=== PATIENT | male | born 1940 | race African-American/Black ===

== ENCOUNTER 2018-10-16 05:07 | Inpatient (IN) | payer MEDICARE, MEDICAID ==
[2018-10-16] VITALS (7 sets, daily range): BP systolic 134–188; BP diastolic 56–83
[~2018-10-16] VITALS: Ht 172.7 cm; Wt 85.7 kg
[2018-10-16] MEDS ORDERED: Albuterol ud Inhalation ONE (05:12)
[2018-10-16] MEDS ORDERED: Aspirin Baby 81mg ORAL ONE (05:15)
[2018-10-16] MEDS ORDERED: Albuterol ud Inhalation HHN ONE (05:15)
[2018-10-16] MEDS ORDERED: AMLODIPINE BESY10 MG ORAL (05:19)
[2018-10-16] MEDS ORDERED: ASPIRIN-LOW81 MG ORAL (05:20)
[2018-10-16] MEDS ORDERED: HYDRALAZINE HCL50 MG ORAL (05:22)
[2018-10-16] MEDS ORDERED: PRAVASTATIN SOD10 M1 ORAL (05:23)
[2018-10-16] MEDS ORDERED: ATORVASTATIN CA40 MG ORAL (05:23)
[2018-10-16] MEDS ORDERED: LISINOPRIL40 MG ORAL (05:24)
--- NOTE | 2018-10-16 05:25 | NUR ---
ED Nurse Note: Patient BIBA with c/o SOB with history of hypertension. RT at bedside administering a breathing treatment.
--- NOTE | 2018-10-16 05:35 | NUR ---
ED Nurse Note: Patient tolerating breathing treatment well. No s/s of acute distress. breathing does sound wet patient is able to expectorate secretions. Will continue to monitor.
[2018-10-16 05:38] LABS: MEAN CORPUSCULAR VOLUME 80 FL (80-99); PLATELET COUNT 222 K/UL (150-450); RED BLOOD COUNT 4.14 M/UL (4.70-6.10); RED CELL DISTRIBUTION WIDTH 16.9 % (11.6-14.8)
[2018-10-16 05:39] LABS: WHITE BLOOD COUNT 22.5 K/UL (4.8-10.8)
[2018-10-16 05:44] LABS: ANION GAP 9 mmol/L (5-15); BLOOD UREA NITROGEN 28 mg/dL (7-18); CALCIUM 8.8 MG/DL (8.5-10.1); CARBON DIOXIDE 26 MMOL/L (21-32); CHLORIDE 107 MMOL/L (98-107); CREATININE 1.6 MG/DL (0.55-1.30); SODIUM 142 MMOL/L (136-145)
--- NOTE | 2018-10-16 05:46 | Emergency Room Report ---
History of Present Illness General Chief Complaint: Dyspnea/Respdistress Source: Patient, EMS Present Illness HPI This is a 78-year-old male with history of CAD and high blood pressure. He presents with chief complaint of shortness of breath. He said his been ongoing for last 2 days but worse tonight. He said he couldn't breathe. Had to call 911. EMS said that he was hypoxic and very hypertensive. Patient was given 0.8 of nitroglycerin spray. He was put on oxygen and brought here. Patient said is worse with laying flat. Worse with exertion. Denies any chest pain. Denies any nausea vomiting. Denies any fever or chills. Never had this problem before. No history of CHF or COPD. Allergies: Coded Allergies: UNABLE TO ASSESS (Unverified , 10/16/18) Patient History Past Medical History: see triage record, old chart reviewed, DM, HTN, CAD Past Surgical History: none Pertinent Family History: none Social History: Denies: smoking Immunizations: other Reviewed Nursing Documentation: PMH: Agreed; PSxH: Agreed Nursing Documentation-PMH Past Medical History: No History, Except For Hx Cardiac Problems: Yes Hx Hypertension: Yes Review of Systems Eye: Denies: eye pain, blurred vision ENT: Denies: ear pain, nose congestion, throat swelling Respiratory: Reports: shortness of breath; Denies: cough Cardiovascular: Denies: chest pain, palpitations Gastrointestinal: Denies: abdominal pain, diarrhea, nausea, vomiting Musculoskeletal: Denies: back pain, joint pain Skin: Denies: rash Neurological: Denies: headache, numbness Endocrine: Denies: increased thirst, increased urine Hematologic/Lymphatic: Denies: easy bruising All Other Systems: negative except mentioned in HPI Physical Exam Vital Signs Date Time Temp Pulse Resp B/P (MAP) Pulse Ox O2 Delivery O2 Flow Rate FiO2 10/16/18 05:07 97.9 64 22 188/83 100 Non-Rebreather 15.0 10/16/18 05:19 100 vitals with htn and hypoxia Sp02 EP Interpretation: abnormal General Appearance: moderate distress Head: normocephalic, atraumatic Eyes: bilateral eye PERRL, bilateral eye EOMI ENT: hearing grossly normal, normal pharynx Neck: full range of motion, supple, no meningismus Respiratory: chest non-tender, respiratory distress, accessory muscle use, rales Cardiovascular #1: regular rate, rhythm, no murmur Gastrointestinal: normal bowel sounds, non tender, no mass, no organomegaly, no bruit, non-distended Musculoskeletal: back normal, normal range of motion, swelling - 2+ pitting edema Psychiatric: mood/affect normal Skin: warm/dry Medical Decision Making Diagnostic Impression: Primary Impression: Acute respiratory failure with hypoxia Additional Impressions: Pulmonary edema Qualified Codes: J81.0 - Acute pulmonary edema Hypertension Qualified Codes: I10 - Essential (primary) hypertension Acute exacerbation of CHF (congestive heart failure) Qualified Codes: I50.9 - Heart failure, unspecified Leukocytosis Qualified Codes: D72.829 - Elevated white blood cell count, unspecified ER Course Patient presents with a acute respiratory distress and has pulmonary edema. Better now. He does have a leukocytosis. I see no source of infection. He has no fever or crackles on exam. Onset was acute. Leukocytosis may be a stress response. His chf may be secondary to cardiac event. Will admit for further workup. I discussed case with Dr. Segura. Lab Results Impression labs with elevated WBC EKG Diagnostic Results Rate: normal Rhythm: NSR ST Segments: no acute changes ASA given to the pt in ED: Yes Rhythm Strip Diag. Results EP Interpretation: yes Rate: 55 Rhythm: NSR, no PVC's, no ectopy Chest X-Ray Diagnostic Results Chest X-Ray Diagnostic Results : Chest X-Ray Ordered: Yes # of Views/Limited/Complete: 1 View Indication: Shortness of Breath EP Interpretation: Yes Interpretation: no consolidation, no pneumothorax, other - Pulmonary edema Impression: Other - pulmonary edema, chf Electronically Signed by: Haris Avery MD Last Vital Signs Date Time Temp Pulse Resp B/P (MAP) Pulse Ox O2 Delivery O2 Flow Rate FiO2 10/16/18 05:30 63 21 100 Non-Rebreather 15.0 100 10/16/18 05:26 97.9 188/83 Status: improved Disposition: ADMITTED INPATIENT Condition: Serious Haris Avery MD Oct 16, 2018 05:46
[2018-10-16 05:54] LABS: APPEARANCE,URINE CLEAR; BILIRUBIN, URINE NEGATIVE (NEGATIVE); GLUCOSE, URINE (UA) NEGATIVE (NEGATIVE); KETONES,URINE NEGATIVE (NEGATIVE); LEUKOCYTE ESTERASE ,URINE NEGATIVE (NEGATIVE); NITRITE,URINE NEGATIVE (NEGATIVE); PH,URINE 5 (4.5-8.0); PROTEIN,URINE 4+ (NEGATIVE); UROBILINOGEN,URINE NORMAL MG/DL (0.0-1.0)
[2018-10-16 05:57] LABS: ALANINE AMINOTRANSFERASE 27 U/L (12-78); ALBUMIN 3.4 G/DL (3.4-5.0); ALBUMIN/GLOBULIN RATIO 0.7 (1.0-2.7); ALKALINE PHOSPHATASE 118 U/L (46-116); ASPARTATE AMINO TRANSFERASE 15 U/L (15-37); BILIRUBIN,TOTAL 0.8 MG/DL (0.2-1.0); CREATINE KINASE 86 U/L (26-308)
[2018-10-16 06:07] LABS: COLOR,URINE YELLOW
[2018-10-16] MEDS ORDERED: Enoxaparin 100mg Inj SUBQ ONE (06:15)
[2018-10-16] MEDS ORDERED: Nitroglycerin 2% oint pkt TOPIC ONE (06:45)
--- NOTE | 2018-10-16 07:07 | NUR ---
ED Nurse Note: REPORT RECEIVED FROM OMAR PUGH. PT LAYING PEACEFULLY IN BED IN NAD. AOX4. FAMILY AT BEDSIDE. RR12 @ 97% 02 SATURATION ON 3L O2 VIA NASAL CANNULA.
--- NOTE | 2018-10-16 08:00 | NUR ---
ED Nurse Note: TELE UNIT CALLED FOR PT TRANSFER. REPORT GIVEN TO OMAR CARDOZA BUT ROOM NOT READY YET. TELE UNIT REQUESTING 20 MORE MINUTES. PT WILL BE TAKEN UP AT THAT TIME.
--- NOTE | 2018-10-16 08:20 | NUR ---
ED Nurse Note: PT TAKEN UP TO TELE UNIT ON [employer] WITH ALL BELONGINGS ACCOMPANIED BY PRIMARY RN AND EMT.
--- NOTE | 2018-10-16 08:30 | NUR ---
NURSE NOTES: Pt brought up from ER via gurney, awake/alert, breathing easily on 2 lpm nasal cannula, denies SOB and denies pain at this time. Pt has occasional non-productive cough. Crackles/rales in both bases. Abdomen sof/supple. Miving all extremities well, good distal functions. Urinals available at bedside. Bed left in low position, side rails up x 2 and call light left near pt's hand.
--- NOTE | 2018-10-16 09:55 | Consultation ---
History of Present Illness General Date patient seen: Oct 16, 2018 Chief Complaint: Dyspnea/Respdistress Present Illness HPI 78-year-old male with history of CAD, DM, HTN, presents with chief complaint of shortness of breath. He said his been ongoing for last 2 days but worse tonight. EMS said that he was hypoxic and very hypertensive. Patient was given 0.8 of nitroglycerin spray. He was put on oxygen and brought here. Denies any chest pain. Denies any nausea vomiting. Denies any fever or chills. Never had this problem before. He was found to have extensive pulmonary edema and admitted to telemetry for further evaluation. Allergies: Coded Allergies: No Known Allergies (Unverified , 10/16/18) Medication History Scheduled Amlodipine Besylate* (Amlodipine Besylate*), 10 MG ORAL DAILY, (Reported) Aspirin (Aspirin EC), 81 MG ORAL DAILY, (Reported) Atorvastatin Calcium* (Atorvastatin Calcium*), 40 MG ORAL BEDTIME, (Reported) Hydralazine Hcl* (Hydralazine Hcl*), 50 MG ORAL EVERY 8 HOURS, (Reported) Lisinopril* (Lisinopril*), 40 MG ORAL DAILY, (Reported) Pravastatin Sod (Pravastatin Sod), 10 MG ORAL BEDTIME, (Reported) Patient History Healthcare decision maker Resuscitation status Advanced Directive on File Past Medical/Surgical History Past Medical/Surgical History: (1) Diabetes mellitus (2) CAD (coronary artery disease) (3) Hypertension Review of Systems Constitutional: Reports: no symptoms Eye: Reports: no symptoms ENT: Reports: no symptoms Respiratory: Reports: orthopnea, shortness of breath Physical Exam General Appearance: WD/WN Lines, tubes and drains: peripheral HEENT: normocephalic, atraumatic Neck: normal alignment, supple Respiratory/Chest: rhonchi - left, rhonchi - right Breasts: no masses Cardiovascular/Chest: regular rhythm Abdomen: non tender, soft, no organomegaly Genitourinary/Rectal: normal genital exam Extremities: pitting Last 24 Hour Vital Signs Date Time Temp Pulse Resp B/P (MAP) Pulse Ox O2 Delivery O2 Flow Rate FiO2 10/16/18 08:32 98.4 62 13 130/78 97 Room Air 10/16/18 07:09 98.2 62 12 144/62 97 Nasal Cannula 3.0 10/16/18 06:57 97.9 54 18 141/56 96 Nasal Cannula 3.0 32 10/16/18 06:41 145/122 10/16/18 05:50 97.9 56 20 167/60 96 Nasal Cannula 3.0 32 10/16/18 05:30 63 21 100 Non-Rebreather 3.0 32 10/16/18 05:26 60 19 Non-Rebreather 15.0 100 10/16/18 05:26 97.9 60 19 188/83 99 Non-Rebreather 15.0 100 10/16/18 05:19 60 19 Non-Rebreather 15.0 100 10/16/18 05:19 60 19 99 Non-Rebreather 15.0 100 10/16/18 05:07 97.9 64 22 188/83 100 Non-Rebreather 15.0 Intake and Output 10/15/18 10/16/18 19:00 07:00 Intake Total 0 ml Output Total 300 ml Balance -300 ml Intake Oral 0 ml Output Urine Total 300 ml # Voids 3 Laboratory Tests Test 10/16/18 05:14 10/16/18 05:45 White Blood Count 22.5 K/UL (4.8-10.8) *H Red Blood Count 4.14 M/UL (4.70-6.10) L Hemoglobin 10.0 G/DL (14.2-18.0) L Hematocrit 33.0 % (42.0-52.0) L Mean Corpuscular Volume 80 FL (80-99) Mean Corpuscular Hemoglobin 24.2 PG (27.0-31.0) L Mean Corpuscular Hemoglobin Concent 30.3 G/DL (32.0-36.0) L Red Cell Distribution Width 16.9 % (11.6-14.8) H Platelet Count 222 K/UL (150-450) Mean Platelet Volume 5.2 FL (6.5-10.1) L Neutrophils (%) (Auto) % (45.0-75.0) Lymphocytes (%) (Auto) % (20.0-45.0) Monocytes (%) (Auto) % (1.0-10.0) Eosinophils (%) (Auto) % (0.0-3.0) Basophils (%) (Auto) % (0.0-2.0) Differential Total Cells Counted 100 Neutrophils % (Manual) 83 % (45-75) H Lymphocytes % (Manual) 9 % (20-45) L Monocytes % (Manual) 4 % (1-10) Eosinophils % (Manual) 3 % (0-3) Basophils % (Manual) 1 % (0-2) Band Neutrophils 0 % (0-8) Platelet Estimate Adequate Platelet Morphology Normal Hypochromasia 1+ Anisocytosis 1+ Prothrombin Time 10.4 SEC (9.30-11.50) Prothromb Time International Ratio 1.0 (0.9-1.1) Activated Partial Thromboplast Time 32 SEC (23-33) Sodium Level 142 MMOL/L (136-145) Potassium Level 4.0 MMOL/L (3.5-5.1) Chloride Level 107 MMOL/L (98-107) Carbon Dioxide Level 26 MMOL/L (21-32) Anion Gap 9 mmol/L (5-15) Blood Urea Nitrogen 28 mg/dL (7-18) H Creatinine 1.6 MG/DL (0.55-1.30) H Estimat Glomerular Filtration Rate mL/min (>60) Glucose Level 201 MG/DL (74-106) H Calcium Level 8.8 MG/DL (8.5-10.1) Total Bilirubin 0.8 MG/DL (0.2-1.0) Aspartate Amino Transf (AST/SGOT) 15 U/L (15-37) Alanine Aminotransferase (ALT/SGPT) 27 U/L (12-78) Alkaline Phosphatase 118 U/L (46-116) H Total Creatine Kinase 86 U/L (26-308) Creatine Kinase MB 1.0 NG/ML (0.0-3.6) Creatine Kinase MB Relative Index 1.1 Troponin I 0.108 ng/mL (0.000-0.056) Pro-B-Type Natriuretic Peptide 1466 pg/mL (0-125) H Total Protein 8.3 G/DL (6.4-8.2) H Albumin 3.4 G/DL (3.4-5.0) Globulin 4.9 g/dL Albumin/Globulin Ratio 0.7 (1.0-2.7) L Urine Color Yellow Urine Appearance Clear Urine pH 5 (4.5-8.0) Urine Specific [place] 1.020 (1.005-1.035) Urine Protein 4+ (NEGATIVE) H Urine Glucose (UA) Negative (NEGATIVE) Urine Ketones Negative (NEGATIVE) Urine Blood Negative (NEGATIVE) Urine Nitrite Negative (NEGATIVE) Urine Bilirubin Negative (NEGATIVE) Urine Urobilinogen Normal MG/DL (0.0-1.0) Urine Leukocyte Esterase Negative (NEGATIVE) Urine RBC 0-2 /HPF (0 - 0) H Urine WBC 0-2 /HPF (0 - 0) Urine Squamous Epithelial Cells Occasional /LPF Urine Amorphous Sediment Few /LPF (NONE) H Urine Bacteria Occasional /HPF (NONE) Urine Fine Granular Casts 0-2 /LPF (NONE) H Height (Feet): 5 Height (Inches): 8.00 Weight (Pounds): 200 Assessment/Plan Problem List: (1) Hypertensive emergency ICD Codes: I16.1 - Hypertensive emergency SNOMED: 142363229831779 (2) Acute exacerbation of CHF (congestive heart failure) ICD Codes: I50.9 - Heart failure, unspecified SNOMED: 84357040, 912640689 Qualifiers: Qualified Codes: I50.9 - Heart failure, unspecified (3) Sepsis ICD Codes: A41.9 - Sepsis, unspecified organism SNOMED: 48691742 (4) Acute respiratory failure with hypoxia ICD Codes: J96.01 - Acute respiratory failure with hypoxia SNOMED: 62928781, 696083492 (5) Pulmonary edema ICD Codes: J81.1 - Chronic pulmonary edema SNOMED: 81412821, 299639115 Qualifiers: Qualified Codes: J81.0 - Acute pulmonary edema (6) Diabetes mellitus ICD Codes: E11.9 - Type 2 diabetes mellitus without complications SNOMED: 39395912 (7) Hypertension ICD Codes: I10 - Essential (primary) hypertension SNOMED: 18915224, 495801397 Qualifiers: Qualified Codes: I10 - Essential (primary) hypertension (8) Diabetic nephropathy ICD Codes: E11.21 - Type 2 diabetes mellitus with diabetic nephropathy SNOMED: 103631095 Assessment/Plan wahl culture iv abx diuretics, lasix drip renal studies with urine electrolytes Echocardiogram thoracentesis check CXR and BNP in am dvt prophylaxis diabetic diet Janell Juarez MD Oct 16, 2018 09:55
[2018-10-16] MEDS ORDERED: Albuterol/Ipratropium 3ml neb HHN PRN (10:00)
[2018-10-16] MEDS ORDERED: Miralax 17gm pkt ORAL PRN (10:00)
--- NOTE | 2018-10-16 12:00 | Diagnostic Imaging Report ---
Indication: Shortness of breath Technique: One view of the chest Comparison: none Findings: Patient's chin obscures the upper mediastinum. Extensive bilateral diffuse airspace opacities are noted. There may be some pleural fluid on the left. The heart is enlarged. Impression: Extensive bilateral airspace disease, pneumonia versus edema. Cardiomegaly Possible left pleural effusion
--- NOTE | 2018-10-16 12:33 | Pre-Procedure Note/Attestation ---
Pre-Procedure Note/Attestation Complete Prior to Procedure Planned Procedure: right Procedure Narrative: thoracentesis Indications for Procedure Pre-Operative Diagnosis: R effusion Attestation I attest that I discussed the nature of the procedure; its benefits; risks and complications; and alternatives (and the risks and benefits of such alternatives ), prior to the procedure, with the patient (or the patient's legal premium service representative). I attest that, if there was a reasonable possibility of needing a blood transfusion, the patient (or the patient's legal premium service representative) was given the [facility] standardized written summary, pursuant to the Ranjith [place] Blood Safety Act ([place] Health and Safety Code # 1645, as amended). I attest that I re-evaluated the patient just prior to the surgery and that there has been no change in the patient's H&P, except as documented below: Manan Quinonez MD Oct 16, 2018 12:33
--- NOTE | 2018-10-16 12:44 | Brief Operative Note ---
Immediate Post Operative Note Operative Note Pre-op Diagnosis: R effusion Post-op Diagnosis: R thoracentesis Post-op Diagnosis: same as pre-op Findings: consistent w/pre-op dx studies Surgeon: Colby Quinonez Anesthesia: local Specimen: yes - cloudy yellow fluid-specimen sent to lab Complications: none Condition: stable Fluids: none Implant(s) used?: No Manan Quinonez MD Oct 16, 2018 12:44
--- NOTE | 2018-10-16 12:48 | Cardiology Report ---
APPROVED REPORT EXAM: Two-dimensional and M-mode echocardiogram with Doppler and color Doppler. INDICATION Coronary artery disease M-Mode DIMENSIONS IVSd1.6 (0.7-1.1cm)Left Atrium (MM)3.9 (1.6-4.0cm) LVDd5.4 (3.5-5.6cm)Aortic Root3.0 (2.0-3.7cm) PWd1.6 (0.7-1.1cm)Aortic Cusp Exc.1.9 (1.5-2.0cm) LVDs4.3 (2.5-4.0cm) PWs1.5 cm Normal left ventricular chamber size, systolic function and wall motion. Left ventricular ejection fraction estimated to be 60 %. Mild left ventricular hypertrophy. Anterior Echo-free space, may be due to pericardial fat or effusion. Mild left atrial enlargement by 2D. Right cardiac chamber sizes are within normal limits. Focal aortic valve sclerosis with adequate cusp excursion. Thickened mitral valve leaflets with normal excursion. Mild mitral annulus and aortic root calcification. Pulmonic valve not well visualized. Normal tricuspid valve structure. IVC is normal in size without physiological collapse. A color flow and spectral Doppler study was performed and revealed: Trace aortic insufficiency. Mild mitral regurgitation. Normal left ventricular diastolic function. Mild tricuspid regurgitation. Tricuspid systolic velocities suggests peak right ventricular systolic pressure of 55 mmHg, consistent with moderate pulmonary hypertension. No pulmonic regurgitation present.
--- NOTE | 2018-10-16 13:10 | Cardiology Report ---
APPROVED REPORT EKG Measurement Heart [id number] CT [id number] Sinus rhythm with 1st degree AV block Otherwise normal ECG
--- NOTE | 2018-10-16 13:34 | NUR ---
RADIOLOGY DEPT CHEST X-RAY POST THORA COMPLETED.-P.DYE
[2018-10-16] MEDS: HydrALAZINE 50mg tab ORAL SCH ×2 (13:46→21:07)
--- NOTE | 2018-10-16 13:56 | Diagnostic Imaging Report ---
Indication: Post thoracentesis Technique: One view of the chest Comparison: 8 hours earlier Findings: Slight improvement but persistent of previously demonstrated interstitial and airspace edema. The right hemidiaphragm is more sharply, presumably reflecting interim thoracentesis. No pneumothorax is demonstrated. Impression: Resolved right pleural effusion, post thoracentesis. No radiographically evident complication Improved but persistent interstitial and airspace edema
--- NOTE | 2018-10-16 14:07 | Diagnostic Imaging Report ---
Indications: Pleural effusion Technique: Informed consent obtained prior to commencement of the procedure from the patient. Residual timeout performed. Ultrasound used to localize optimal puncture site. Sterile prepping and draping right chest. Local anesthesia with 1% lidocaine. Under real-time ultrasound guidance, puncture pleural space using thoracentesis needle. Stylet removed. Catheter placed to vacuum bottle suction. Total 400 milliliters of slightly cloudy yellow fluid aspirated. Patient tolerated procedure well, without immediate complication. Findings: Followup sonography demonstrates complete resolution of pleural fluid. Impression: Successful ultrasound-guided thoracentesis, yielding 400 milliliters of slightly cloudy yellow fluid
--- NOTE | 2018-10-16 14:28 | Consultation ---
History of Present Illness General Date patient seen: Oct 16, 2018 Chief Complaint: Dyspnea/Respdistress Present Illness HPI 78 y/o M with hx of CAD, DM2, HTN presents to ED on 10/16 with 2 days of worsening SOB. Upon admission found to be hypoxic and hypertensive. +orthopnea, THOMAS. Denied CP,n/v/d, f/c upon admission. Allergies: Coded Allergies: No Known Allergies (Unverified , 10/16/18) Medication History Scheduled Amlodipine Besylate* (Amlodipine Besylate*), 10 MG ORAL DAILY, (Reported) Aspirin (Aspirin EC), 81 MG ORAL DAILY, (Reported) Atorvastatin Calcium* (Atorvastatin Calcium*), 40 MG ORAL BEDTIME, (Reported) Hydralazine Hcl* (Hydralazine Hcl*), 50 MG ORAL EVERY 8 HOURS, (Reported) Lisinopril* (Lisinopril*), 40 MG ORAL DAILY, (Reported) Pravastatin Sod (Pravastatin Sod), 10 MG ORAL BEDTIME, (Reported) Patient History Healthcare decision maker Resuscitation status Advanced Directive on File Patient History Narrative Pmhx: as above Shx: Denies: smoking Fhx: non contributory Review of Systems All Other Systems: negative except mentioned in HPI Physical Exam Physical Exam Narrative General Appearance: WD/WN Lines, tubes and drains: peripheral HEENT: normocephalic, atraumatic Neck: normal alignment, supple Respiratory/Chest: rhonchi - left, rhonchi - right Breasts: no masses Cardiovascular/Chest: regular rhythm Abdomen: non tender, soft, no organomegaly Genitourinary/Rectal: normal genital exam Extremities: pitting Last 24 Hour Vital Signs Date Time Temp Pulse Resp B/P (MAP) Pulse Ox O2 Delivery O2 Flow Rate FiO2 10/16/18 13:46 130/78 10/16/18 08:32 98.4 62 13 130/78 97 Room Air 10/16/18 07:09 98.2 62 12 144/62 97 Nasal Cannula 3.0 10/16/18 06:57 97.9 54 18 141/56 96 Nasal Cannula 3.0 32 10/16/18 06:41 145/122 10/16/18 05:50 97.9 56 20 167/60 96 Nasal Cannula 3.0 32 10/16/18 05:30 63 21 100 Non-Rebreather 3.0 32 10/16/18 05:26 60 19 Non-Rebreather 15.0 100 10/16/18 05:26 97.9 60 19 188/83 99 Non-Rebreather 15.0 100 10/16/18 05:19 60 19 Non-Rebreather 15.0 100 10/16/18 05:19 60 19 99 Non-Rebreather 15.0 100 10/16/18 05:07 97.9 64 22 188/83 100 Non-Rebreather 15.0 Intake and Output 10/15/18 10/16/18 19:00 07:00 Intake Total 0 ml Output Total 300 ml Balance -300 ml Intake Oral 0 ml Output Urine Total 300 ml # Voids 3 Laboratory Tests Test 10/16/18 05:14 10/16/18 05:45 White Blood Count 22.5 K/UL (4.8-10.8) *H Red Blood Count 4.14 M/UL (4.70-6.10) L Hemoglobin 10.0 G/DL (14.2-18.0) L Hematocrit 33.0 % (42.0-52.0) L Mean Corpuscular Volume 80 FL (80-99) Mean Corpuscular Hemoglobin 24.2 PG (27.0-31.0) L Mean Corpuscular Hemoglobin Concent 30.3 G/DL (32.0-36.0) L Red Cell Distribution Width 16.9 % (11.6-14.8) H Platelet Count 222 K/UL (150-450) Mean Platelet Volume 5.2 FL (6.5-10.1) L Neutrophils (%) (Auto) % (45.0-75.0) Lymphocytes (%) (Auto) % (20.0-45.0) Monocytes (%) (Auto) % (1.0-10.0) Eosinophils (%) (Auto) % (0.0-3.0) Basophils (%) (Auto) % (0.0-2.0) Differential Total Cells Counted 100 Neutrophils % (Manual) 83 % (45-75) H Lymphocytes % (Manual) 9 % (20-45) L Monocytes % (Manual) 4 % (1-10) Eosinophils % (Manual) 3 % (0-3) Basophils % (Manual) 1 % (0-2) Band Neutrophils 0 % (0-8) Platelet Estimate Adequate Platelet Morphology Normal Hypochromasia 1+ Anisocytosis 1+ Prothrombin Time 10.4 SEC (9.30-11.50) Prothromb Time International Ratio 1.0 (0.9-1.1) Activated Partial Thromboplast Time 32 SEC (23-33) Sodium Level 142 MMOL/L (136-145) Potassium Level 4.0 MMOL/L (3.5-5.1) Chloride Level 107 MMOL/L (98-107) Carbon Dioxide Level 26 MMOL/L (21-32) Anion Gap 9 mmol/L (5-15) Blood Urea Nitrogen 28 mg/dL (7-18) H Creatinine 1.6 MG/DL (0.55-1.30) H Estimat Glomerular Filtration Rate mL/min (>60) Glucose Level 201 MG/DL (74-106) H Calcium Level 8.8 MG/DL (8.5-10.1) Total Bilirubin 0.8 MG/DL (0.2-1.0) Aspartate Amino Transf (AST/SGOT) 15 U/L (15-37) Alanine Aminotransferase (ALT/SGPT) 27 U/L (12-78) Alkaline Phosphatase 118 U/L (46-116) H Total Creatine Kinase 86 U/L (26-308) Creatine Kinase MB 1.0 NG/ML (0.0-3.6) Creatine Kinase MB Relative Index 1.1 Troponin I 0.108 ng/mL (0.000-0.056) Pro-B-Type Natriuretic Peptide 1466 pg/mL (0-125) H Total Protein 8.3 G/DL (6.4-8.2) H Albumin 3.4 G/DL (3.4-5.0) Globulin 4.9 g/dL Albumin/Globulin Ratio 0.7 (1.0-2.7) L Urine Color Yellow Urine Appearance Clear Urine pH 5 (4.5-8.0) Urine Specific Mcguffey 1.020 (1.005-1.035) Urine Protein 4+ (NEGATIVE) H Urine Glucose (UA) Negative (NEGATIVE) Urine Ketones Negative (NEGATIVE) Urine Blood Negative (NEGATIVE) Urine Nitrite Negative (NEGATIVE) Urine Bilirubin Negative (NEGATIVE) Urine Urobilinogen Normal MG/DL (0.0-1.0) Urine Leukocyte Esterase Negative (NEGATIVE) Urine RBC 0-2 /HPF (0 - 0) H Urine WBC 0-2 /HPF (0 - 0) Urine Squamous Epithelial Cells Occasional /LPF Urine Amorphous Sediment Few /LPF (NONE) H Urine Bacteria Occasional /HPF (NONE) Urine Fine Granular Casts 0-2 /LPF (NONE) H Height (Feet): 5 Height (Inches): 8.00 Weight (Pounds): 200 Medications Current Medications Medications (Trade) Dose Ordered Sig/Musa Route PRN Reason Start Time Stop Time Status Last Admin Dose Admin Acetaminophen (Tylenol) 650 mg Q4H PRN ORAL T>100.5 10/16/18 10:00 11/15/18 09:59 Albuterol/ Ipratropium (Albuterol/ Ipratropium) 3 ml Q4H PRN HHN Shortness of Breath 10/16/18 10:00 10/21/18 09:59 Amlodipine Besylate (Norvasc) 10 mg DAILY ORAL 10/17/18 09:00 11/16/18 08:59 Aspirin (Ecotrin) 81 mg DAILY ORAL 10/17/18 09:00 11/16/18 08:59 Dextrose (Dextrose 50%) 25 ml Q30M PRN IV Hypoglycemia 10/16/18 10:00 11/15/18 09:59 Dextrose (Dextrose 50%) 50 ml Q30MIN PRN IV Hypoglycemia 10/16/18 10:00 11/15/18 09:59 Furosemide 100 mg/ Dextrose 110 ml @ 11 mls/hr Q10H IV 10/16/18 11:30 11/15/18 11:29 10/16/18 13:45 Heparin Sodium (Porcine) (Heparin 5000 units/ml) 5,000 units EVERY 12 HOURS SUBQ 10/16/18 21:00 11/15/18 20:59 Hydralazine HCl (Apresoline) 50 mg EVERY 8 HOURS ORAL 10/16/18 14:00 11/15/18 13:59 10/16/18 13:46 Lisinopril (Prinivil) 40 mg DAILY ORAL 10/17/18 09:00 11/16/18 08:59 Ondansetron HCl (Zofran) 4 mg Q6H PRN IVP Nausea & Vomiting 10/16/18 10:00 11/15/18 09:59 Polyethylene Glycol (Miralax) 17 gm DAILYPRN PRN ORAL Constipation 10/16/18 10:00 11/15/18 09:59 Pravastatin Sodium (Pravachol) 10 mg BEDTIME ORAL 10/16/18 21:00 11/15/18 20:59 Temazepam (Restoril) 15 mg HSPRN PRN ORAL Insomnia 10/16/18 21:00 10/23/18 20:59 Assessment/Plan Assessment/Plan Abx: None Assessment: Probable PNA -10/16 CXR: Extensive bilateral diffuse airspace opacities are noted. There may be some pleural fluid on the left. The heart is enlarged. Pulmonary edema R pleural effusion -10/16 sp R thoracentesis- cloudy fluid -CXR: Resolved right pleural effusion, post thoracentesis. No radiographically evident complication Improved but persistent interstitial and airspace edema Afebrile Leukocytosis -u/a neg CAD DM2 HTN Plan: -Start empiric Ceftriaxone and azithromycin for probable pNA -sp cx, legionella ag urine, influenza sc -f/u cx -Monitor CBC/CMP, temperatures Thank you for this consultation. Will continue to follow along with you. Discussed with Jill Richardson M.D. Oct 16, 2018 14:28
[2018-10-16 14:42] LABS: APPEARANCE,URINE CLEAR; BILIRUBIN, URINE NEGATIVE (NEGATIVE); COLOR,URINE PALE YELLOW; GLUCOSE, URINE (UA) NEGATIVE (NEGATIVE); KETONES,URINE NEGATIVE (NEGATIVE); LEUKOCYTE ESTERASE ,URINE NEGATIVE (NEGATIVE); NITRITE,URINE NEGATIVE (NEGATIVE); PH,URINE 5 (4.5-8.0); PROTEIN,URINE NEGATIVE (NEGATIVE); UROBILINOGEN,URINE NORMAL MG/DL (0.0-1.0)
[2018-10-16] MEDS: Azithromycin 250mg tab ORAL SCH (15:11)
[2018-10-16 15:30] LABS: CREATINE KINASE 87 U/L (26-308)
--- NOTE | 2018-10-16 16:45 | Cardiology Progress Note ---
Assessment/Plan Assessment/Plan [id number] diurtic bp control serial ezyme Objective Last 24 Hour Vital Signs Date Time Temp Pulse Resp B/P (MAP) Pulse Ox O2 Delivery O2 Flow Rate FiO2 10/16/18 13:46 130/78 10/16/18 08:32 98.4 62 13 130/78 97 Room Air 10/16/18 07:09 98.2 62 12 144/62 97 Nasal Cannula 3.0 10/16/18 06:57 97.9 54 18 141/56 96 Nasal Cannula 3.0 32 10/16/18 06:41 145/122 10/16/18 05:50 97.9 56 20 167/60 96 Nasal Cannula 3.0 32 10/16/18 05:30 63 21 100 Non-Rebreather 3.0 32 10/16/18 05:26 60 19 Non-Rebreather 15.0 100 10/16/18 05:26 97.9 60 19 188/83 99 Non-Rebreather 15.0 100 10/16/18 05:19 60 19 Non-Rebreather 15.0 100 10/16/18 05:19 60 19 99 Non-Rebreather 15.0 100 10/16/18 05:07 97.9 64 22 188/83 100 Non-Rebreather 15.0 Intake and Output 10/15/18 10/16/18 19:00 07:00 Intake Total 0 ml Output Total 300 ml Balance -300 ml Intake Oral 0 ml Output Urine Total 300 ml # Voids 3 Laboratory Tests Test 10/16/18 05:14 10/16/18 05:45 10/16/18 12:33 10/16/18 14:00 White Blood Count 22.5 K/UL (4.8-10.8) *H Red Blood Count 4.14 M/UL (4.70-6.10) L Hemoglobin 10.0 G/DL (14.2-18.0) L Hematocrit 33.0 % (42.0-52.0) L Mean Corpuscular Volume 80 FL (80-99) Mean Corpuscular Hemoglobin 24.2 PG (27.0-31.0) L Mean Corpuscular Hemoglobin Concent 30.3 G/DL (32.0-36.0) L Red Cell Distribution Width 16.9 % (11.6-14.8) H Platelet Count 222 K/UL (150-450) Mean Platelet Volume 5.2 FL (6.5-10.1) L Neutrophils (%) (Auto) % (45.0-75.0) Lymphocytes (%) (Auto) % (20.0-45.0) Monocytes (%) (Auto) % (1.0-10.0) Eosinophils (%) (Auto) % (0.0-3.0) Basophils (%) (Auto) % (0.0-2.0) Differential Total Cells Counted 100 Neutrophils % (Manual) 83 % (45-75) H Lymphocytes % (Manual) 9 % (20-45) L Monocytes % (Manual) 4 % (1-10) Eosinophils % (Manual) 3 % (0-3) Basophils % (Manual) 1 % (0-2) Band Neutrophils 0 % (0-8) Platelet Estimate Adequate Platelet Morphology Normal Hypochromasia 1+ Anisocytosis 1+ Prothrombin Time 10.4 SEC (9.30-11.50) Prothromb Time International Ratio 1.0 (0.9-1.1) Activated Partial Thromboplast Time 32 SEC (23-33) Sodium Level 142 MMOL/L (136-145) Potassium Level 4.0 MMOL/L (3.5-5.1) Chloride Level 107 MMOL/L (98-107) Carbon Dioxide Level 26 MMOL/L (21-32) Anion Gap 9 mmol/L (5-15) Blood Urea Nitrogen 28 mg/dL (7-18) H Creatinine 1.6 MG/DL (0.55-1.30) H Estimat Glomerular Filtration Rate mL/min (>60) Glucose Level 201 MG/DL (74-106) H Hemoglobin A1c Pending Calcium Level 8.8 MG/DL (8.5-10.1) Total Bilirubin 0.8 MG/DL (0.2-1.0) Aspartate Amino Transf (AST/SGOT) 15 U/L (15-37) Alanine Aminotransferase (ALT/SGPT) 27 U/L (12-78) Alkaline Phosphatase 118 U/L (46-116) H Total Creatine Kinase 86 U/L (26-308) Creatine Kinase MB 1.0 NG/ML (0.0-3.6) Creatine Kinase MB Relative Index 1.1 Troponin I 0.108 ng/mL (0.000-0.056) Pro-B-Type Natriuretic Peptide 1466 pg/mL (0-125) H Total Protein 8.3 G/DL (6.4-8.2) H Albumin 3.4 G/DL (3.4-5.0) Globulin 4.9 g/dL Albumin/Globulin Ratio 0.7 (1.0-2.7) L Urine Color Yellow Pale yellow Urine Appearance Clear Clear Urine pH 5 (4.5-8.0) 5 (4.5-8.0) Urine Specific Gladys 1.020 (1.005-1.035) 1.010 (1.005-1.035) Urine Protein 4+ (NEGATIVE) H Negative (NEGATIVE) Urine Glucose (UA) Negative (NEGATIVE) Negative (NEGATIVE) Urine Ketones Negative (NEGATIVE) Negative (NEGATIVE) Urine Blood Negative (NEGATIVE) Negative (NEGATIVE) Urine Nitrite Negative (NEGATIVE) Negative (NEGATIVE) Urine Bilirubin Negative (NEGATIVE) Negative (NEGATIVE) Urine Urobilinogen Normal MG/DL (0.0-1.0) Normal MG/DL (0.0-1.0) Urine Leukocyte Esterase Negative (NEGATIVE) Negative (NEGATIVE) Urine RBC 0-2 /HPF (0 - 0) H 0 /HPF (0 - 0) Urine WBC 0-2 /HPF (0 - 0) 0-2 /HPF (0 - 0) Urine Squamous Epithelial Cells Occasional /LPF Occasional /LPF Urine Amorphous Sediment Few /LPF (NONE) H Urine Bacteria Occasional /HPF (NONE) Few /HPF (NONE) Urine Fine Granular Casts 0-2 /LPF (NONE) H Body Fluid Glucose Pending Body Fluid Total Protein Pending Body Fluid Lactate Dehydrogenase Pending Urine Eosinophils None seen (NONE SEEN) Urine Random Sodium 123 mmol/L (20-110) H Urine Legionella Antigen Pending Test 10/16/18 14:43 Uric Acid 8.0 MG/DL (2.6-7.2) H Total Creatine Kinase 87 U/L (26-308) Troponin I 0.107 ng/mL (0.000-0.056) Herman Cruz MD Oct 16, 2018 16:45
[2018-10-16] MEDS: cefTRIAXone 1 GM in D5W 55 ML IVPB SCH (16:55)
--- NOTE | 2018-10-16 17:03 | History & Physical ---
History and Physical History & Physicial job # [id number] Jean Paul Segura MD Oct 16, 2018 17:03
--- NOTE | 2018-10-16 19:15 | NUR ---
NURSE NOTES: Received report from Guille NELSON, pt. in bed awake, A/O x's 4- able to make needs known. pt. on patient monitor, no signs or symptoms of acute distress noted. pt. appears to be sating well on 2L NC at 97% no distress noted, bed in lowest position and call light within easy reach, bed alarm on, side rails up x's3 and safety brakes engaged, pt. appears to be resting comfortably in bed watching television, left hand 20G running Lasix drip at 11mls/hr- IV intact and patent, safety measures continued, will continue with plan of care. Addendum: 10/16/18 at 2135 by JAMIL ARIAS RN RN 2 Urinals are at bedside and within easy reach.
--- NOTE | 2018-10-16 19:36 | NUR ---
CASE MANAGEMENT: REVIEW 78/M BIBA FROM CC: RESP DISTRESS . SOB X2 DAYS SI: CHF T 98.4 HR 56 RR 22 BP 188/83 SAT 99% NON-REBREATHER 15.0 WBC 22.5 TROPONIN I 0.108 BNP 1466 IS: NITRO TOPICAL X1 LASIX IV X1 ALBUTEROL HHN X1 ASA PO X1 PATIENT ADMITTED TO TELEMETRY UNIT 10/16/2018 DCP: PATIENT IS FROM HOME
[2018-10-16] MEDS: Heparin 5000 units/ml inj SUBQ SCH (20:12)
[2018-10-16] MEDS: NovoLOG Insulin Flexpen SUBQ SCH (20:12)
--- NOTE | 2018-10-16 21:46 | Consultation ---
DATE OF CONSULTATION: 10/16/2018 CARDIOLOGY CONSULTATION: CONSULTING PHYSICIAN: Herman Cruz M.D. REFERRING PHYSICIANS: Jean Paul Segura M.D. and Janell Juarez M.D. REASON FOR REFERRAL: Congestive heart failure. HISTORY OF PRESENT ILLNESS: This is an elderly gentleman who has had apparently shortness of breath for years. He apparently indicates he has had a cold and he got short of breath when he came into the emergency room and has been admitted to the hospital. Emergency room physician's note indicates that the patient called paramedics. Paramedics indicated that he was hypoxic and very hypertensive. Some nitroglycerin spray was given. The patient was placed on oxygen, was transferred to the emergency room. He told the emergency room physician that he was worse when he is lying down and with exertion although he tells me he never wakes up in the middle of the night. He uses 3 pillows for comfort, something that he has always use. He denies any pain or pressure on ambulation. No dizziness or lightheadedness on standing. No heart pounding or palpitations. PAST MEDICAL HISTORY: He said he was told he has got angina. He has never had an angiogram or angioplasty or stent. He has not been in the hospital in a long time. He is a diabetic hypertensive, hyperlipidemia. No heart attack. No cancer. No stroke. No hepatitis or tuberculosis. No asthma or emphysema. No ulcers. No kidney problems, liver problems, thyroid problems, anemia, arthritis, HIV, or AIDS. No blood clots anywhere. ALLERGIES: He is not allergic to any medications. SOCIAL HISTORY: He does not drink now, but he used to drink years ago. Does not smoke. No drug use. He lives at home. He has got family members that check in on him. REVIEW OF SYSTEMS: GASTROINTESTINAL: Denies any nausea, vomiting, diarrhea, or constipation. GENITOURINARY: Denies any burning or blood in his urine. PULMONARY: Denies any coughing, but he seems to indicate that he has got some wheezing. CONSTITUTIONAL: No fever, chills, or night sweats. NEUROLOGIC: He denies. PHYSICAL EXAMINATION: GENERAL: Shows to be obese, elderly gentleman, in no respiratory distress. NECK: Supple. There is jugular venous distention. LUNGS: Very few expiratory wheezes. There are basilar crackles noted. Right worse on the left. CARDIAC: Regular rate and rhythm. There is a systolic ejection murmur. No RV lifts, heaves, thrills. ABDOMEN: Soft, obese. Positive bowel sounds. EXTREMITIES: 1+ edema of the lower extremities bilaterally. NEUROLOGICAL: He is awake, alert, responsive, in no apparent respiratory distress. LABORATORY VALUES: An echocardiogram performed shows ejection fraction of 60%, mild MR, mild TR, pulmonary artery systolic pressure of 55, some thickening of the valves. The patient's laboratories, white count 22.5, hemoglobin 10, and platelet count of 222. Sodium is 142, potassium 4.0, chloride 107, bicarb 26, BUN 20, creatinine 1.6, and glucose of 201. A1c of 8.0. Alkaline phosphatase of 150. Troponin 0.108, 0.107. ProBNP is 1400. Total protein of 8.3. Gamma globulin of 4.9. INR is 1, PTT of 29. Urinalysis appears to show relatively clear urine. A chest x-ray performed in the emergency room had shown extensive bilateral air space disease, pneumonia versus edema and cardiomegaly and possible left-sided pleural effusion. The patient underwent thoracentesis. Approximately 400 mL of slightly cloudy yellow fluid was removed and a chest x-ray post thoracentesis shows resolved right-sided pleural effusion. No radiographic evidence of complications. In fact, I had a chance to review the patient's chest x-ray postprocedure and appears picture consistent with heart failure. The patient's telemetry shows sinus rhythm. Venous duplex study of lower extremities is unremarkable. An EKG shows normal sinus rhythm, normal QRS axis, no ST or T-wave abnormalities to suggest any infarction or ischemia. ASSESSMENT AND PLAN: 1. Probable diastolic heart failure. 2. Possible pneumonia. 3. Pulmonary hypertension. 4. Renal insufficiency. 5. Minimally abnormal cardiac enzymes of questionable significance in light of renal insufficiency. 6. Morbid obesity. 7. Anemia. 8. Diabetes. 9. Hypertension. This patient was seen in cardiac consultation. The patient's blood pressure at the time of presentation was 188/83. The patient's usual medications at home are listed as including amlodipine, aspirin, Lipitor, hydralazine, lisinopril 40 mg a day, and pravastatin. Those medications should be continued. The patient has received some diuretics as his kidney allows, but does not really seem to have any sputum production. His oxygen saturation at this time on room air is 97%. This is after 400 mL of thoracentesis. Repeat cardiac enzymes will be performed to see if there is any identification of any peak or janeth to be suggestive of coronary syndrome. In light of the moderate abnormality of renal function, the cardiac enzyme abnormality may not be of any significance. His echocardiogram showed normal wall motion. However, one may consider further testing depending on the abnormality that over the next few days will be identified. Herman Cruz M.D. DR: RAN JOB#: [id number] CC:
--- NOTE | 2018-10-16 22:16 | History and Physical Report ---
DATE OF ADMISSION: 10/16/2018 CHIEF COMPLAINT: Shortness of breath, pedal edema. HISTORY OF PRESENT ILLNESS: This 78-year-old very delightful gentleman with past medical history significant for coronary artery disease, diabetes type 2, hypertension, morbid obesity, and congestive heart failure, who has presented to the hospital complaining about shortness of breath, got progressively worsening over the past two days. The patient stated that he has been having chronic leg edema, but has been progressively worsening. EMS was called due to the shortness of breath and hypertension. Nitroglycerin spray was given to the patient. The patient was placed on oxygen and subsequently was transferred to the hospital. Shortly after initial evaluation in the emergency, the patient was admitted to the hospital with shortness of breath, possible due to the acute CHF exacerbation with hypertensive urgency. PAST MEDICAL HISTORY/PAST SURGICAL HISTORY: As above, history of hypertension, diabetes type 2, and coronary artery disease. MEDICATIONS: Significant for amlodipine, aspirin, atorvastatin, hydralazine, lisinopril, and pravastatin. ALLERGIES: No known drug allergies. SOCIAL HISTORY: Denies any smoking, alcohol, or drugs. FAMILY HISTORY: Noncontributory. REVIEW OF SYSTEMS: Mostly as above. Denies any dysuria, frequency, or hematuria. Complained about pedal edema. Denies any hemoptysis or hematochezia. Denies any bright red blood per rectum. Complained about weakness. Denies any fall or head trauma. Denies any bowel or urine incontinence. PHYSICAL EXAMINATION: VITAL SIGNS: On admission from the ER, temperature 97.9, pulse 64, respirations 22, and blood pressure 188/83, repeat one was 167/60. GENERAL: The patient is awake and responsive, in no acute distress. HEAD AND NECK: Pupils are equal and reactive to light. Extraocular movements are intact. Neck was supple. No JVD. LUNGS: Good air entry. No wheezes or rales. HEART: S1, S2. Distant heart sounds. No gallops. ABDOMEN: Soft, nondistended, and nontender. Morbidly obese. EXTREMITIES: +1 edema bilateral lower extremities. NEUROLOGIC: Cranial nerves II through XII grossly intact. Moves all four extremities. Gait is intact. RECTAL: Refused and deferred. GENITOURINARY: Refused and deferred. PSYCHIATRIC: Mood and affect is intact. LABORATORY AND DIAGNOSTIC DATA: On admission from the ER, WBC of 22, hemoglobin 10, hematocrit 33, and platelets 222. Sodium 142, potassium 4.0, chloride 107, bicarbonate 26, BUN 28, and creatinine 1.6. Glucose is 201. Hemoglobin A1c is 8.3. Uric acid is 8.0. First troponin is 0.108. ProBNP 1466. The patient's PT 10, INR 1.0, and PTT 22. Urinalysis, unremarkable. Chest x-ray was done in the ER. Extensive bilateral airspace disease, pneumonia versus edema, cardiomegaly, left pleural effusion ASSESSMENT: 1. Acute congestive heart failure exacerbation on chronic with preserved ejection fraction, diastolic dysfunction. 2. Left-sided pleural effusion. 3. Morbid obesity. 4. Hypertension. 5. Dyslipidemia. 6. Diabetes type 2. PLAN: Admit the patient to telemetry. We will follow up with Pulmonary consultation with Dr. Juarez and cardiology consultation with Dr. Herman Cruz. The patient is scheduled for thoracocentesis. Follow up with the laboratory. Code status is Full Code. 2-D echo. DVT prophylaxis is heparin subcutaneous. Expected to be discharged within two to three days. Jean Paul Segura M.D. DR: PETRA JOB#: [id number] CC:
[2018-10-17] VITALS: BP 133/59
[2018-10-17 03:51] VITALS: BP 147/63
[2018-10-17] MEDS: HydrALAZINE 50mg tab ORAL SCH ×3 (05:00→21:32)
[2018-10-17] MEDS: NovoLOG Insulin Flexpen SUBQ SCH ×4 (06:17→21:34)
--- NOTE | 2018-10-17 07:06 | NUR ---
HAND-OFF: Report given to Guille RN, pt. remains stable and no signs of distress noted.
[2018-10-17 07:36] LABS: BASOPHILS % (AUTO) 0.4 % (0.0-2.0); EOSINOPHILS % (AUTO) 2.3 % (0.0-3.0); HEMATOCRIT 30.7 % (42.0-52.0); HEMOGLOBIN 9.4 G/DL (14.2-18.0); LYMPHOCYTES % (AUTO) 11.9 % (20.0-45.0); MEAN CORPUSCULAR VOLUME 80 FL (80-99); MONOCYTES % (AUTO) 9.2 % (1.0-10.0); NEUTROPHILS % (AUTO) 76.2 % (45.0-75.0); PLATELET COUNT 227 K/UL (150-450); RED BLOOD COUNT 3.86 M/UL (4.70-6.10); RED CELL DISTRIBUTION WIDTH 17.1 % (11.6-14.8); WHITE BLOOD COUNT 12.1 K/UL (4.8-10.8)
--- NOTE | 2018-10-17 07:39 | Pulmonology Progress Note ---
Assessment/Plan Assessment/Plan ASSESSMENT Acute hypoxemic resp failure, requiring 100% NRM- resolved Pulmonary edema Probably acute diastolic CHF exacerbation Probably PNA R pleural effusion s/p thoracentesis -400 ml CAD HTN with HTN urgency ( initially) -improved Elevated troponin DM YOSSI Anemia Moderate pulm HTN PLAN OF CARE tele Lasix gtt; monitor cardiorenal parameters and volumes fup CXR with worsening CHF, however pro BNP trending downand pt clinically patient improved /off nonrebreathing mask , on O2 via nasal cannula, no shortness of breath check venous duplex cardio follows ECHO with pEF 60% and RVSP of 55 troponin levels minimally elevated likely due to renal insufficiency continue aspirin and statin BP management with CCB, hydralazine and SKYLAR Nitro prn no AV luisana blockers s/p thoracentesis R pleural effusion yielding 400 mL of cloudy pleural fluid analysis and culture pending , ESR significantly elevated fup CXR revealed complete resolution of effusion, no pneumothorax O2 prn titrate ; pulm toilet fup with CXR on Friday abx as per ID recs monitor electrolytes and renal parameters, correct electrolytes as needed and avoid nephrotoxic bowel regimen supportive care monitor H&H with goal to keep hemoglobin above 7 blood sugar management with sliding scale of insulin , hemoglobin A1c 8.3 not at goal yet, monitor clsoely, may need to add long acting insulin for better control case discussed and evaluated by supervising physician Subjective Allergies: Coded Allergies: No Known Allergies (Unverified , 10/16/18) Subjective bradycardic in 40s ; no dizziness no diaphoresis shortness of breath improved pulse oximetry stable leukocytosis trending down , afebrile minimal elevation in troponin Objective Last 24 Hour Vital Signs Date Time Temp Pulse Resp B/P (MAP) Pulse Ox O2 Delivery O2 Flow Rate FiO2 10/17/18 05:00 147/63 10/17/18 04:00 47 10/17/18 03:51 98.1 59 20 147/63 (91) 97 10/17/18 00:00 53 10/17/18 00:00 98.0 59 20 133/59 (83) 98 10/16/18 21:07 150/70 10/16/18 21:00 Nasal Cannula 2.0 10/16/18 20:00 98.3 61 18 150/79 (102) 98 10/16/18 20:00 54 10/16/18 16:00 56 10/16/18 16:00 98.4 57 20 149/68 (95) 97 10/16/18 13:46 130/78 10/16/18 12:00 59 10/16/18 10:00 Nasal Cannula 2.0 10/16/18 08:32 98.4 62 13 130/78 97 Room Air 10/16/18 08:30 97.9 53 20 134/64 (87) 95 10/16/18 08:00 54 Intake and Output 10/16/18 10/17/18 19:00 07:00 Intake Total 1211 ml 132 ml Output Total 1000 ml 1675 ml Balance 211 ml -1543 ml Intake Oral 1200 ml IV Total 11 ml 132 ml Output Urine Total 1000 ml 1675 ml General Appearance: no acute distress, other - obese AA Jaci/A/O x 4 in NAD HEENT: normocephalic, atraumatic, anicteric, mucous membranes moist Respiratory/Chest: no respiratory distress, no accessory muscle use, decreased breath sounds - at bases Cardiovascular: bradycardia - SB on tele Abdomen: normal bowel sounds, soft, non tender - obese Extremities: other - +2 edema BLE Neurologic/Psychiatric: alert, oriented x 3, responsive Musculoskeletal: normal muscle bulk Laboratory Tests 10/16/18 12:33: Body Fluid Glucose [Pending], Body Fluid Total Protein [Pending], Body Fluid Lactate Dehydrogenase [Pending] 10/16/18 14:00: Urine Color Pale yellow, Urine Appearance Clear, Urine pH 5, Urine Specific [place] 1.010, Urine Protein Negative, Urine Glucose (UA) Negative, Urine Ketones Negative, Urine Blood Negative, Urine Nitrite Negative, Urine Bilirubin Negative, Urine Urobilinogen Normal, Urine Leukocyte Esterase Negative, Urine RBC 0, Urine WBC 0-2, Urine Squamous Epithelial Cells Occasional, Urine Bacteria Few, Urine Eosinophils None seen, Urine Random Sodium 123H, Urine Potassium Timed 37, Urine Legionella Antigen [Pending] 10/16/18 14:43: Uric Acid 8.0H, Total Creatine Kinase 87, Troponin I 0.107H 10/17/18 06:24: Troponin I [Pending], White Blood Count [Pending], Red Blood Count [Pending], Hemoglobin [Pending], Hematocrit [Pending], Mean Corpuscular Volume [Pending], Mean Corpuscular Hemoglobin [Pending], Mean Corpuscular Hemoglobin Concent [ Pending], Red Cell Distribution Width [Pending], Platelet Count [Pending], Mean Platelet Volume [Pending], Neutrophils (%) (Auto) [Pending], Lymphocytes (%) ( Auto) [Pending], Monocytes (%) (Auto) [Pending], Eosinophils (%) (Auto) [Pending ], Basophils (%) (Auto) [Pending], Erythrocyte Sedimentation Rate [Pending], Reticulocyte Count [Pending], Sodium Level [Pending], Potassium Level [Pending] , Chloride Level [Pending], Carbon Dioxide Level [Pending], Blood Urea Nitrogen [Pending], Creatinine [Pending], Estimat Glomerular Filtration Rate [Pending], Glucose Level [Pending], Calcium Level [Pending], Phosphorus Level [Pending], Magnesium Level [Pending], Iron Level [Pending], Unsaturated Iron Binding [ Pending], Total Bilirubin [Pending], Aspartate Amino Transf (AST/SGOT) [Pending] , Alanine Aminotransferase (ALT/SGPT) [Pending], Alkaline Phosphatase [Pending] , Lactate Dehydrogenase [Pending], C-Reactive Protein, Quantitative [Pending], Pro-B-Type Natriuretic Peptide [Pending], Total Protein [Pending], Albumin [ Pending], Globulin [Pending], Carcinoembryonic Antigen [Pending], Vitamin B12 Level [Pending], Folate [Pending] Current Medications Medications (Trade) Dose Ordered Sig/Musa Route PRN Reason Start Time Stop Time Status Last Admin Dose Admin Acetaminophen (Tylenol) 650 mg Q4H PRN ORAL T>100.5 10/16/18 10:00 11/15/18 09:59 Albuterol/ Ipratropium (Albuterol/ Ipratropium) 3 ml Q4H PRN HHN Shortness of Breath 10/16/18 10:00 10/21/18 09:59 Amlodipine Besylate (Norvasc) 10 mg DAILY ORAL 10/17/18 09:00 11/16/18 08:59 Aspirin (Ecotrin) 81 mg DAILY ORAL 10/17/18 09:00 11/16/18 08:59 Azithromycin (Zithromax) 500 mg DAILY ORAL 10/16/18 14:30 10/23/18 14:29 10/16/18 15:11 Ceftriaxone Sodium 1 gm/ Dextrose 55 ml @ 110 mls/hr Q24H IVPB 10/16/18 16:00 10/23/18 15:59 10/16/18 16:55 Dextrose (Dextrose 50%) 25 ml Q30M PRN IV Hypoglycemia 10/16/18 16:45 11/15/18 16:44 Dextrose (Dextrose 50%) 50 ml Q30M PRN IV Hypoglycemia 10/16/18 16:45 11/15/18 16:44 Furosemide 100 mg/ Dextrose 110 ml @ 11 mls/hr Q10H IV 10/16/18 11:30 11/15/18 11:29 10/17/18 02:06 Heparin Sodium (Porcine) (Heparin 5000 units/ml) 5,000 units EVERY 12 HOURS SUBQ 10/16/18 21:00 11/15/18 20:59 10/16/18 20:12 Hydralazine HCl (Apresoline) 50 mg EVERY 8 HOURS ORAL 10/16/18 14:00 11/15/18 13:59 10/17/18 05:00 Insulin Aspart (NovoLOG) BEFORE MEALS AND HS SUBQ 10/16/18 21:00 11/15/18 20:59 10/17/18 06:17 Lisinopril (Prinivil) 40 mg DAILY ORAL 10/17/18 09:00 11/16/18 08:59 Ondansetron HCl (Zofran) 4 mg Q6H PRN IVP Nausea & Vomiting 10/16/18 10:00 11/15/18 09:59 Polyethylene Glycol (Miralax) 17 gm DAILYPRN PRN ORAL Constipation 10/16/18 10:00 11/15/18 09:59 Pravastatin Sodium (Pravachol) 10 mg BEDTIME ORAL 10/16/18 21:00 11/15/18 20:59 10/16/18 20:11 Temazepam (Restoril) 15 mg HSPRN PRN ORAL Insomnia 10/16/18 21:00 10/23/18 20:59 Ayana Salgado NP Oct 17, 2018 07:39
[2018-10-17 07:55] LABS: ALANINE AMINOTRANSFERASE 25 U/L (12-78); ALBUMIN/GLOBULIN RATIO 0.6 (1.0-2.7); ALKALINE PHOSPHATASE 102 U/L (46-116); ANION GAP 13 mmol/L (5-15); ASPARTATE AMINO TRANSFERASE 12 U/L (15-37); BILIRUBIN,TOTAL 0.5 MG/DL (0.2-1.0); BLOOD UREA NITROGEN 36 mg/dL (7-18); CALCIUM 8.8 MG/DL (8.5-10.1); CARBON DIOXIDE 28 MMOL/L (21-32); CHLORIDE 105 MMOL/L (98-107); CREATININE 1.8 MG/DL (0.55-1.30); LACTATE DEHYDROGENASE 168 U/L (81-234); POTASSIUM 3.8 MMOL/L (3.5-5.1); SODIUM 146 MMOL/L (136-145)
[2018-10-17 08:00] VITALS: BP 135/72
[2018-10-17 08:00] LABS: ANION GAP 10 mmol/L (5-15); BLOOD UREA NITROGEN 37 mg/dL (7-18); CARBON DIOXIDE 27 MMOL/L (21-32); CHLORIDE 105 MMOL/L (98-107); CREATININE 1.8 MG/DL (0.55-1.30); PHOSPHORUS 4.9 MG/DL (2.5-4.9); POTASSIUM 3.8 MMOL/L (3.5-5.1); SODIUM 142 MMOL/L (136-145)
--- NOTE | 2018-10-17 08:00 | NUR ---
NURSE NOTES: Pt awake/alert in bed, breathing easily on room air, denies SOB and denies pain at this time, Vital signs stable with SR @ 56 on monitor. IV access right forearm with lasix drip running at 11 ml/hr. Bed left in low position, side rails up x 2 and call light left near pt's hand.
--- NOTE | 2018-10-17 08:08 | Infectious Diseases Prog Note ---
Assessment/Plan Assessment/Plan Probable PNA -10/16 CXR: Extensive bilateral diffuse airspace opacities are noted. There may be some pleural fluid on the left. The heart is enlarged. Pulmonary edema R pleural effusion -10/16 sp R thoracentesis- cloudy fluid -CXR: Resolved right pleural effusion, post thoracentesis. No radiographically evident complication Improved but persistent interstitial and airspace edema Afebrile Leukocytosis -u/a neg CAD DM2 HTN Plan: -Continue Ceftriaxone #2 and azithromycin #2 for probable PNA -sp cx, legionella ag urine, influenza sc -f/u cx -Monitor CBC/CMP, temperatures Will continue to follow along with you. . Subjective Allergies: Coded Allergies: No Known Allergies (Unverified , 10/16/18) Subjective Patient now on 2L NC Afebrile leukocytosis resolving Objective Vital Signs Last 24 Hour Vital Signs Date Time Temp Pulse Resp B/P (MAP) Pulse Ox O2 Delivery O2 Flow Rate FiO2 10/17/18 05:00 147/63 10/17/18 04:00 47 10/17/18 03:51 98.1 59 20 147/63 (91) 97 10/17/18 00:00 53 10/17/18 00:00 98.0 59 20 133/59 (83) 98 10/16/18 21:07 150/70 10/16/18 21:00 Nasal Cannula 2.0 10/16/18 20:00 98.3 61 18 150/79 (102) 98 10/16/18 20:00 54 10/16/18 16:00 56 10/16/18 16:00 98.4 57 20 149/68 (95) 97 10/16/18 13:46 130/78 10/16/18 12:00 59 10/16/18 10:00 Nasal Cannula 2.0 10/16/18 08:32 98.4 62 13 130/78 97 Room Air 10/16/18 08:30 97.9 53 20 134/64 (87) 95 Height (Feet): 5 Height (Inches): 8.00 Weight (Pounds): 203 Objective Gen: NAD on NC HEENT: normocephalic, atraumatic, MMM Respiratory/Chest: Coarse B/L Cardiovascular/Chest: regular rhythm Abdomen: non tender, soft Laboratory Tests Test 10/16/18 12:33 10/16/18 14:00 10/16/18 14:43 10/17/18 06:24 Body Fluid Glucose Pending Body Fluid Total Protein Pending Body Fluid Lactate Dehydrogenase Pending Urine Color Pale yellow Urine Appearance Clear Urine pH 5 (4.5-8.0) Urine Specific [place] 1.010 (1.005-1.035) Urine Protein Negative (NEGATIVE) Urine Glucose (UA) Negative (NEGATIVE) Urine Ketones Negative (NEGATIVE) Urine Blood Negative (NEGATIVE) Urine Nitrite Negative (NEGATIVE) Urine Bilirubin Negative (NEGATIVE) Urine Urobilinogen Normal MG/DL (0.0-1.0) Urine Leukocyte Esterase Negative (NEGATIVE) Urine RBC 0 /HPF (0 - 0) Urine WBC 0-2 /HPF (0 - 0) Urine Squamous Epithelial Cells Occasional /LPF Urine Bacteria Few /HPF (NONE) Urine Eosinophils None seen (NONE SEEN) Urine Random Sodium 123 mmol/L (20-110) H Urine Potassium Timed 37 mmol/L (12-62) Urine Legionella Antigen Pending Uric Acid 8.0 MG/DL (2.6-7.2) H Total Creatine Kinase 87 U/L (26-308) Troponin I 0.107 ng/mL (0.000-0.056) Pending White Blood Count 12.1 K/UL (4.8-10.8) H Red Blood Count 3.86 M/UL (4.70-6.10) L Hemoglobin 9.4 G/DL (14.2-18.0) L Hematocrit 30.7 % (42.0-52.0) L Mean Corpuscular Volume 80 FL (80-99) Mean Corpuscular Hemoglobin 24.2 PG (27.0-31.0) L Mean Corpuscular Hemoglobin Concent 30.5 G/DL (32.0-36.0) L Red Cell Distribution Width 17.1 % (11.6-14.8) H Platelet Count 227 K/UL (150-450) Mean Platelet Volume 8.6 FL (6.5-10.1) Neutrophils (%) (Auto) 76.2 % (45.0-75.0) H Lymphocytes (%) (Auto) 11.9 % (20.0-45.0) L Monocytes (%) (Auto) 9.2 % (1.0-10.0) Eosinophils (%) (Auto) 2.3 % (0.0-3.0) Basophils (%) (Auto) 0.4 % (0.0-2.0) Erythrocyte Sedimentation Rate Pending Reticulocyte Count Pending Sodium Level 146 MMOL/L (136-145) H Potassium Level 3.8 MMOL/L (3.5-5.1) Chloride Level 105 MMOL/L (98-107) Carbon Dioxide Level 28 MMOL/L (21-32) Anion Gap 13 mmol/L (5-15) Blood Urea Nitrogen 36 mg/dL (7-18) H Creatinine 1.8 MG/DL (0.55-1.30) H Estimat Glomerular Filtration Rate mL/min (>60) Glucose Level 175 MG/DL (74-106) H Calcium Level 8.8 MG/DL (8.5-10.1) Phosphorus Level Pending Magnesium Level 1.8 MG/DL (1.8-2.4) Iron Level Pending Unsaturated Iron Binding Pending Total Bilirubin 0.5 MG/DL (0.2-1.0) Aspartate Amino Transf (AST/SGOT) 12 U/L (15-37) L Alanine Aminotransferase (ALT/SGPT) 25 U/L (12-78) Alkaline Phosphatase 102 U/L (46-116) Lactate Dehydrogenase 168 U/L (81-234) C-Reactive Protein, Quantitative 9.2 mg/dL (0.00-0.90) H Pro-B-Type Natriuretic Peptide Pending Total Protein 7.8 G/DL (6.4-8.2) Albumin 3.0 G/DL (3.4-5.0) L Globulin 4.8 g/dL Albumin/Globulin Ratio 0.6 (1.0-2.7) L Carcinoembryonic Antigen Pending Vitamin B12 Level Pending Folate Pending Current Medications Medications (Trade) Dose Ordered Sig/Musa Route PRN Reason Start Time Stop Time Status Last Admin Dose Admin Acetaminophen (Tylenol) 650 mg Q4H PRN ORAL T>100.5 10/16/18 10:00 11/15/18 09:59 Albuterol/ Ipratropium (Albuterol/ Ipratropium) 3 ml Q4H PRN HHN Shortness of Breath 10/16/18 10:00 10/21/18 09:59 Amlodipine Besylate (Norvasc) 10 mg DAILY ORAL 10/17/18 09:00 11/16/18 08:59 Aspirin (Ecotrin) 81 mg DAILY ORAL 10/17/18 09:00 11/16/18 08:59 Azithromycin (Zithromax) 500 mg DAILY ORAL 10/16/18 14:30 10/23/18 14:29 10/16/18 15:11 Ceftriaxone Sodium 1 gm/ Dextrose 55 ml @ 110 mls/hr Q24H IVPB 10/16/18 16:00 10/23/18 15:59 10/16/18 16:55 Dextrose (Dextrose 50%) 25 ml Q30M PRN IV Hypoglycemia 10/16/18 16:45 11/15/18 16:44 Dextrose (Dextrose 50%) 50 ml Q30M PRN IV Hypoglycemia 10/16/18 16:45 11/15/18 16:44 Furosemide 100 mg/ Dextrose 110 ml @ 11 mls/hr Q10H IV 10/16/18 11:30 11/15/18 11:29 10/17/18 02:06 Heparin Sodium (Porcine) (Heparin 5000 units/ml) 5,000 units EVERY 12 HOURS SUBQ 10/16/18 21:00 11/15/18 20:59 10/16/18 20:12 Hydralazine HCl (Apresoline) 50 mg EVERY 8 HOURS ORAL 10/16/18 14:00 11/15/18 13:59 10/17/18 05:00 Insulin Aspart (NovoLOG) BEFORE MEALS AND HS SUBQ 10/16/18 21:00 11/15/18 20:59 10/17/18 06:17 Lisinopril (Prinivil) 40 mg DAILY ORAL 10/17/18 09:00 11/16/18 08:59 Ondansetron HCl (Zofran) 4 mg Q6H PRN IVP Nausea & Vomiting 10/16/18 10:00 11/15/18 09:59 Polyethylene Glycol (Miralax) 17 gm DAILYPRN PRN ORAL Constipation 10/16/18 10:00 11/15/18 09:59 Pravastatin Sodium (Pravachol) 10 mg BEDTIME ORAL 10/16/18 21:00 11/15/18 20:59 10/16/18 20:11 Temazepam (Restoril) 15 mg HSPRN PRN ORAL Insomnia 10/16/18 21:00 10/23/18 20:59 Dylon Jain MD Oct 17, 2018 08:08
[2018-10-17 08:46] LABS: % IRON SATURATION 11 % (15-50); IRON 26 ug/dL (50-175); TOTAL IRON BINDING CAPACITY 235 ug/dL (250-450)
[2018-10-17] MEDS: Azithromycin 250mg tab ORAL SCH (09:06)
[2018-10-17] MEDS: Aspirin EC 81mg tab ORAL SCH (09:06)
[2018-10-17] MEDS: Lisinopril 20mg tab ORAL SCH (09:08)
[2018-10-17] MEDS: Heparin 5000 units/ml inj SUBQ SCH ×2 (09:11→21:31)
--- NOTE | 2018-10-17 10:23 | Diagnostic Imaging Report ---
EXAM: XR Chest, 1 View CLINICAL HISTORY: DYSPNEA TECHNIQUE: Frontal view of the chest. COMPARISON: Chest x-ray, 10/16/18 1316 FINDINGS: Lungs: Worsening bilateral airspace opacities and interstitial thickening. Pleural space: Unremarkable. No pneumothorax. Heart: Cardiomegaly. Mediastinum: Unremarkable. Bones/joints: Unremarkable. IMPRESSION: Worsening bilateral airspace opacities and interstitial thickening. Likely worsening CHF.
[2018-10-17 12:00] VITALS: BP 138/82
[2018-10-17] MEDS: cefTRIAXone 1 GM in D5W 55 ML IVPB SCH (14:53)
[2018-10-17 16:00] VITALS: BP 141/73
--- NOTE | 2018-10-17 16:35 | Cardiology Progress Note ---
Assessment/Plan Assessment/Plan 1. Probable diastolic heart failure. 2. Possible pneumonia. 3. Pulmonary hypertension. 4. Renal insufficiency. 5. Minimally abnormal cardiac enzymes of questionable significance in light of renal insufficiency. 6. Morbid obesity. 7. Anemia. 8. Diabetes. 9. Hypertension. symptoms marvin is better keep neg feud balance on laix drip trop withour any padk or janeth not reach cinereae for mi based on who criterea bp control once chf better cxr worse likley lag on max dose of lisnopril and norvasc may need increse in hydralazien Subjective Cardiovascular: Denies: chest pain, lightheadedness, palpitations Respiratory: Denies: shortness of breath Gastrointestinal/Abdominal: Denies: abdominal pain Genitourinary: Denies: burning Objective Last 24 Hour Vital Signs Date Time Temp Pulse Resp B/P (MAP) Pulse Ox O2 Delivery O2 Flow Rate FiO2 10/17/18 16:00 57 10/17/18 16:00 98.0 57 19 141/73 (95) 97 10/17/18 14:52 138/82 10/17/18 12:00 55 10/17/18 12:00 98.3 55 16 138/82 (100) 98 10/17/18 09:08 147/63 10/17/18 09:06 47 147/63 10/17/18 09:00 Nasal Cannula 2.0 10/17/18 08:00 97.9 56 19 135/72 (93) 96 10/17/18 08:00 58 10/17/18 05:00 147/63 10/17/18 04:00 47 10/17/18 03:51 98.1 59 20 147/63 (91) 97 10/17/18 00:00 53 10/17/18 00:00 98.0 59 20 133/59 (83) 98 10/16/18 21:07 150/70 10/16/18 21:00 Nasal Cannula 2.0 10/16/18 20:00 98.3 61 18 150/79 (102) 98 10/16/18 20:00 54 General Appearance: no apparent distress, alert Neck: supple Cardiovascular: normal rate Respiratory/Chest: crackles/rales - left base Abdomen: normal bowel sounds, non tender, soft Extremities: trace edema Intake and Output 10/16/18 10/17/18 19:00 07:00 Intake Total 1211 ml 132 ml Output Total 1000 ml 1675 ml Balance 211 ml -1543 ml Intake Oral 1200 ml IV Total 11 ml 132 ml Output Urine Total 1000 ml 1675 ml Laboratory Tests Test 10/17/18 06:24 10/17/18 09:50 10/17/18 12:33 White Blood Count 12.1 K/UL (4.8-10.8) H Red Blood Count 3.86 M/UL (4.70-6.10) L Hemoglobin 9.4 G/DL (14.2-18.0) L Hematocrit 30.7 % (42.0-52.0) L Mean Corpuscular Volume 80 FL (80-99) Mean Corpuscular Hemoglobin 24.2 PG (27.0-31.0) L Mean Corpuscular Hemoglobin Concent 30.5 G/DL (32.0-36.0) L Red Cell Distribution Width 17.1 % (11.6-14.8) H Platelet Count 227 K/UL (150-450) Mean Platelet Volume 8.6 FL (6.5-10.1) Neutrophils (%) (Auto) 76.2 % (45.0-75.0) H Lymphocytes (%) (Auto) 11.9 % (20.0-45.0) L Monocytes (%) (Auto) 9.2 % (1.0-10.0) Eosinophils (%) (Auto) 2.3 % (0.0-3.0) Basophils (%) (Auto) 0.4 % (0.0-2.0) Differential Total Cells Counted 100 Neutrophils % (Manual) 79 % (45-75) H Lymphocytes % (Manual) 12 % (20-45) L Monocytes % (Manual) 6 % (1-10) Eosinophils % (Manual) 3 % (0-3) Basophils % (Manual) 0 % (0-2) Band Neutrophils 0 % (0-8) Platelet Estimate Adequate Platelet Morphology Normal Hypochromasia 1+ Anisocytosis 1+ Erythrocyte Sedimentation Rate 110 MM/HR (0-20) H Reticulocyte Count 0.8 % (0.0-2.0) Sodium Level 146 MMOL/L (136-145) H Potassium Level 3.8 MMOL/L (3.5-5.1) Chloride Level 105 MMOL/L (98-107) Carbon Dioxide Level 28 MMOL/L (21-32) Anion Gap 13 mmol/L (5-15) Blood Urea Nitrogen 36 mg/dL (7-18) H Creatinine 1.8 MG/DL (0.55-1.30) H Estimat Glomerular Filtration Rate mL/min (>60) Glucose Level 175 MG/DL (74-106) H Calcium Level 8.8 MG/DL (8.5-10.1) Phosphorus Level 5.0 MG/DL (2.5-4.9) H Magnesium Level 1.8 MG/DL (1.8-2.4) Iron Level 26 ug/dL (50-175) L Total Iron Binding Capacity 235 ug/dL (250-450) L Percent Iron Saturation 11 % (15-50) L Unsaturated Iron Binding 209 ug/dL (112-346) Total Bilirubin 0.5 MG/DL (0.2-1.0) Aspartate Amino Transf (AST/SGOT) 12 U/L (15-37) L Alanine Aminotransferase (ALT/SGPT) 25 U/L (12-78) Alkaline Phosphatase 102 U/L (46-116) Lactate Dehydrogenase 168 U/L (81-234) Troponin I 0.088 ng/mL (0.000-0.056) 0.095 ng/mL (0.000-0.056) C-Reactive Protein, Quantitative 9.2 mg/dL (0.00-0.90) H Pro-B-Type Natriuretic Peptide 999 pg/mL (0-125) H Total Protein 7.8 G/DL (6.4-8.2) Albumin 3.0 G/DL (3.4-5.0) L Globulin 4.8 g/dL Albumin/Globulin Ratio 0.6 (1.0-2.7) L Carcinoembryonic Antigen Pending Vitamin B12 Level 398 PG/ML (193-986) Folate 10.0 NG/ML (8.6-58.9) Body Fluid Source Thoracentesis Body Fluid Volume 9 ml mL Body Fluid Appearance Yellow/sl hazy (Clear) Body Fluid RBC 2315 /CUMM Body Fluid Total Nucleated Cells 685 /CUMM Body Fluid Albumin Pending Herman Cruz MD Oct 17, 2018 16:35
--- NOTE | 2018-10-17 17:26 | Internal Med Progress Note ---
Subjective Date of Service: Oct 17, 2018 Physician Name Layo Angel Attending Physician Jean Paul Segura MD Current Medications Medications (Trade) Dose Ordered Sig/Musa Route PRN Reason Start Time Stop Time Status Last Admin Dose Admin Acetaminophen (Tylenol) 650 mg Q4H PRN ORAL T>100.5 10/16/18 10:00 11/15/18 09:59 Albuterol/ Ipratropium (Albuterol/ Ipratropium) 3 ml Q4H PRN HHN Shortness of Breath 10/16/18 10:00 10/21/18 09:59 Amlodipine Besylate (Norvasc) 10 mg DAILY ORAL 10/17/18 09:00 11/16/18 08:59 10/17/18 09:06 Aspirin (Ecotrin) 81 mg DAILY ORAL 10/17/18 09:00 11/16/18 08:59 10/17/18 09:06 Azithromycin (Zithromax) 500 mg DAILY ORAL 10/16/18 14:30 10/23/18 14:29 10/17/18 09:06 Ceftriaxone Sodium 1 gm/ Dextrose 55 ml @ 110 mls/hr Q24H IVPB 10/16/18 16:00 10/23/18 15:59 10/17/18 14:53 Dextrose (Dextrose 50%) 25 ml Q30M PRN IV Hypoglycemia 10/16/18 16:45 11/15/18 16:44 Dextrose (Dextrose 50%) 50 ml Q30M PRN IV Hypoglycemia 10/16/18 16:45 11/15/18 16:44 Furosemide 100 mg/ Dextrose 110 ml @ 11 mls/hr Q10H IV 10/16/18 11:30 11/15/18 11:29 10/17/18 17:09 Heparin Sodium (Porcine) (Heparin 5000 units/ml) 5,000 units EVERY 12 HOURS SUBQ 10/16/18 21:00 11/15/18 20:59 10/17/18 09:11 Hydralazine HCl (Apresoline) 50 mg EVERY 8 HOURS ORAL 10/16/18 14:00 11/15/18 13:59 10/17/18 14:52 Insulin Aspart (NovoLOG) BEFORE MEALS AND HS SUBQ 10/16/18 21:00 11/15/18 20:59 10/17/18 17:12 Lisinopril (Prinivil) 40 mg DAILY ORAL 10/17/18 09:00 11/16/18 08:59 10/17/18 09:08 Ondansetron HCl (Zofran) 4 mg Q6H PRN IVP Nausea & Vomiting 10/16/18 10:00 11/15/18 09:59 Polyethylene Glycol (Miralax) 17 gm DAILYPRN PRN ORAL Constipation 10/16/18 10:00 11/15/18 09:59 Pravastatin Sodium (Pravachol) 10 mg BEDTIME ORAL 10/16/18 21:00 11/15/18 20:59 10/16/18 20:11 Temazepam (Restoril) 15 mg HSPRN PRN ORAL Insomnia 10/16/18 21:00 10/23/18 20:59 Allergies: Coded Allergies: No Known Allergies (Unverified , 10/16/18) ROS Limited/Unobtainable: No Constitutional: Reports: no symptoms HEENT: Reports: no symptoms Cardiovascular: Reports: no symptoms Respiratory: Reports: shortness of breath Gastrointestinal/Abdominal: Reports: no symptoms Genitourinary: Reports: no symptoms Neurologic/Psychiatric: Reports: no symptoms Subjective 78 YO M admitted with chief complaint of shortness of breath. Now congestive heart failure and hypertensive urgency. Objective Last Vital Signs Date Time Temp Pulse Resp B/P (MAP) Pulse Ox O2 Delivery O2 Flow Rate FiO2 10/17/18 16:00 57 10/17/18 16:00 98.0 19 141/73 (95) 97 10/17/18 09:00 Nasal Cannula 2.0 10/16/18 06:57 32 Laboratory Tests Test 10/17/18 06:24 10/17/18 09:50 10/17/18 12:33 White Blood Count 12.1 K/UL (4.8-10.8) H Red Blood Count 3.86 M/UL (4.70-6.10) L Hemoglobin 9.4 G/DL (14.2-18.0) L Hematocrit 30.7 % (42.0-52.0) L Mean Corpuscular Volume 80 FL (80-99) Mean Corpuscular Hemoglobin 24.2 PG (27.0-31.0) L Mean Corpuscular Hemoglobin Concent 30.5 G/DL (32.0-36.0) L Red Cell Distribution Width 17.1 % (11.6-14.8) H Platelet Count 227 K/UL (150-450) Mean Platelet Volume 8.6 FL (6.5-10.1) Neutrophils (%) (Auto) 76.2 % (45.0-75.0) H Lymphocytes (%) (Auto) 11.9 % (20.0-45.0) L Monocytes (%) (Auto) 9.2 % (1.0-10.0) Eosinophils (%) (Auto) 2.3 % (0.0-3.0) Basophils (%) (Auto) 0.4 % (0.0-2.0) Differential Total Cells Counted 100 Neutrophils % (Manual) 79 % (45-75) H Lymphocytes % (Manual) 12 % (20-45) L Monocytes % (Manual) 6 % (1-10) Eosinophils % (Manual) 3 % (0-3) Basophils % (Manual) 0 % (0-2) Band Neutrophils 0 % (0-8) Platelet Estimate Adequate Platelet Morphology Normal Hypochromasia 1+ Anisocytosis 1+ Erythrocyte Sedimentation Rate 110 MM/HR (0-20) H Reticulocyte Count 0.8 % (0.0-2.0) Sodium Level 146 MMOL/L (136-145) H Potassium Level 3.8 MMOL/L (3.5-5.1) Chloride Level 105 MMOL/L (98-107) Carbon Dioxide Level 28 MMOL/L (21-32) Anion Gap 13 mmol/L (5-15) Blood Urea Nitrogen 36 mg/dL (7-18) H Creatinine 1.8 MG/DL (0.55-1.30) H Estimat Glomerular Filtration Rate mL/min (>60) Glucose Level 175 MG/DL (74-106) H Calcium Level 8.8 MG/DL (8.5-10.1) Phosphorus Level 5.0 MG/DL (2.5-4.9) H Magnesium Level 1.8 MG/DL (1.8-2.4) Iron Level 26 ug/dL (50-175) L Total Iron Binding Capacity 235 ug/dL (250-450) L Percent Iron Saturation 11 % (15-50) L Unsaturated Iron Binding 209 ug/dL (112-346) Total Bilirubin 0.5 MG/DL (0.2-1.0) Aspartate Amino Transf (AST/SGOT) 12 U/L (15-37) L Alanine Aminotransferase (ALT/SGPT) 25 U/L (12-78) Alkaline Phosphatase 102 U/L (46-116) Lactate Dehydrogenase 168 U/L (81-234) Troponin I 0.088 ng/mL (0.000-0.056) 0.095 ng/mL (0.000-0.056) C-Reactive Protein, Quantitative 9.2 mg/dL (0.00-0.90) H Pro-B-Type Natriuretic Peptide 999 pg/mL (0-125) H Total Protein 7.8 G/DL (6.4-8.2) Albumin 3.0 G/DL (3.4-5.0) L Globulin 4.8 g/dL Albumin/Globulin Ratio 0.6 (1.0-2.7) L Carcinoembryonic Antigen Pending Vitamin B12 Level 398 PG/ML (193-986) Folate 10.0 NG/ML (8.6-58.9) Body Fluid Source Thoracentesis Body Fluid Volume 9 ml mL Body Fluid Appearance Yellow/sl hazy (Clear) Body Fluid RBC 2315 /CUMM Body Fluid Total Nucleated Cells 685 /CUMM Body Fluid Albumin Pending Intake and Output 10/16/18 10/17/18 19:00 07:00 Intake Total 1211 ml 132 ml Output Total 1000 ml 1675 ml Balance 211 ml -1543 ml Intake Oral 1200 ml IV Total 11 ml 132 ml Output Urine Total 1000 ml 1675 ml Objective PHYSICAL EXAMINATION: GENERAL: The patient is awake and responsive, in no acute distress. HEAD AND NECK: Pupils are equal and reactive to light. Extraocular movements are intact. Neck was supple. No JVD. LUNGS: Good air entry. No wheezes or rales. HEART: S1, S2. Distant heart sounds. No gallops. ABDOMEN: Soft, nondistended, and nontender. Morbidly obese. EXTREMITIES: +1 edema bilateral lower extremities. NEUROLOGIC: Cranial nerves II through XII grossly intact. Moves all four extremities. Gait is intact. RECTAL: Refused and deferred. GENITOURINARY: Refused and deferred. PSYCHIATRIC: Mood and affect is intact. Assessment/Plan Assessment/Plan ASSESSMENT: 1. Acute congestive heart failure exacerbation on chronic with preserved ejection fraction, diastolic dysfunction. 2. Left-sided pleural effusion. 3. Morbid obesity. 4. Hypertension. 5. Dyslipidemia. 6. Diabetes type 2. 7. Dyspnea PLAN: 1. Admit the patient to telemetry. 2. Pulmonary consultation with Dr. Juarez and 3. cardiology consultation with Dr. Herman Cruz. 4. The patient is S/P thoracocentesis; await results 5. Code status is Full Code. 2-D echo. DVT prophylaxis is heparin subcutaneous. Expected to be discharged within two to three days. Layo Angel MD Oct 17, 2018 17:26
--- NOTE | 2018-10-17 19:30 | NUR ---
NURSE NOTES: Received report from Reina Pike RN. Patient in bed AAO x4 with HOB elevated at semifowlers with no complaints of acute pain at this time. Kept clean, dry, and comfortable in bed. IV line intact and patent with prescribed medication running. Placed on 2L NC, 02 sat at 94-95% with no S/S of respiratory distress noted. Safety precaution in place; siderails x3 up, call light within reach, bed in lowest position, brakes and alarm on at all times. Needs and wants anticipated and attended, will continue plan of care and monitor for any changes
[2018-10-17 20:00] VITALS: BP 146/68
[2018-10-18] VITALS: BP 147/63
--- NOTE | 2018-10-18 03:01 | NUR ---
NURSE NOTES: Patient in bed asleep with no S/S of distress noted. Will continue to monitor for any changes noted
[2018-10-18 04:00] VITALS: BP 128/72
[2018-10-18] MEDS: NovoLOG Insulin Flexpen SUBQ SCH ×4 (05:56→21:09)
[2018-10-18] MEDS: HydrALAZINE 50mg tab ORAL SCH (05:59)
--- NOTE | 2018-10-18 07:29 | NUR ---
HAND-OFF: Report given to Reina Pike RN. Patient in bed asleep with no S/S of distress at this time. Endorsed plan of care
[2018-10-18 07:50] LABS: BASOPHILS % (AUTO) 0.6 % (0.0-2.0); EOSINOPHILS % (AUTO) 3.2 % (0.0-3.0); HEMATOCRIT 33.8 % (42.0-52.0); HEMOGLOBIN 10.3 G/DL (14.2-18.0); LYMPHOCYTES % (AUTO) 11.2 % (20.0-45.0); MEAN CORPUSCULAR VOLUME 79 FL (80-99); MONOCYTES % (AUTO) 7.2 % (1.0-10.0); NEUTROPHILS % (AUTO) 77.7 % (45.0-75.0); PLATELET COUNT 220 K/UL (150-450); RED BLOOD COUNT 4.27 M/UL (4.70-6.10); RED CELL DISTRIBUTION WIDTH 16.6 % (11.6-14.8); WHITE BLOOD COUNT 13.5 K/UL (4.8-10.8)
--- NOTE | 2018-10-18 07:55 | NUR ---
NURSE NOTES: Pt awake/alert in bed, eating breakfast, breathing easily on room air, denies SOB and denies pain at this time, Vital signs stable with SR @ 57 on monitor. IV access right forearm with lasix drip running at 11 ml/hr. Bed left in low position, side rails up x 2 and call light left near pt's hand.
[2018-10-18 08:00] VITALS: BP 157/68
--- NOTE | 2018-10-18 08:24 | Pulmonology Progress Note ---
Assessment/Plan Assessment/Plan ASSESSMENT Acute hypoxemic resp failure, requiring 100% NRM- resolved Pulmonary edema Probably acute diastolic CHF exacerbation Probably PNA R pleural effusion s/p thoracentesis -400 ml CAD HTN with HTN urgency ( initially) -improved Elevated troponin DM YOSSI Anemia Moderate pulm HTN PLAN OF CARE tele Lasix gtt; monitor cardiorenal parameters and volumes-contineu for additional 24 hrs fup CXR with worsening CHF, however pro BNP trending down, pt clinically patient improved /off nonrebreathing mask , on O2 via nasal cannula, no shortness of breath, less edema check venous duplex cardio follows ECHO with pEF 60% and RVSP of 55 troponin levels minimally elevated likely due to renal insufficiency continue aspirin and statin BP management with CCB, hydralazine and SKYLAR, further management as per cardio recs Nitro prn no AV luisana blockers HR better s/p thoracentesis R pleural effusion yielding 400 mL of cloudy pleural fluid pleural fluid analysis noted; culture pending , ESR significantly elevated fup CXR revealed complete resolution of effusion, no pneumothorax O2 prn titrate ; pulm toilet fup with CXR on Friday abx as per ID recs monitor electrolytes and renal parameters, creat slightly worse-1.8 ( 1.6 on admission), anticipate to stop Lasix drip tomorrow correct electrolytes as needed and avoid nephrotoxic bowel regimen supportive care monitor H&H with goal to keep hemoglobin above 7 blood sugar management with sliding scale of insulin , hemoglobin A1c 8.3 not at goal yet, monitor clsoely, may need to add long acting insulin for better control case discussed and evaluated by supervising physician Subjective Allergies: Coded Allergies: No Known Allergies (Unverified , 10/16/18) Subjective HR better in 50-60th no dizziness no diaphoresis shortness of breath improved on 3l O2 pulse ox stable, no signs of resp distress pulse oximetry stable leukocytosis trending down , afebrile minimal elevation in troponin Objective Last 24 Hour Vital Signs Date Time Temp Pulse Resp B/P (MAP) Pulse Ox O2 Delivery O2 Flow Rate FiO2 10/18/18 05:59 162/70 10/18/18 04:00 69 10/18/18 04:00 98.0 58 19 128/72 (90) 99 10/18/18 00:00 98.4 60 20 147/63 (91) 95 10/18/18 00:00 61 10/17/18 21:32 146/68 10/17/18 21:00 Nasal Cannula 2.0 10/17/18 20:49 62 18 Nasal Cannula 3.0 32 10/17/18 20:00 58 10/17/18 20:00 98.5 61 19 146/68 (94) 97 10/17/18 16:00 57 10/17/18 16:00 98.0 57 19 141/73 (95) 97 10/17/18 14:52 138/82 10/17/18 12:00 55 10/17/18 12:00 98.3 55 16 138/82 (100) 98 10/17/18 09:08 147/63 10/17/18 09:06 47 147/63 10/17/18 09:00 Nasal Cannula 2.0 Intake and Output 10/17/18 10/18/18 18:59 06:59 Intake Total 1211 ml Output Total 550 ml 700 ml Balance 661 ml -700 ml Intake Oral 1200 ml IV Total 11 ml Output Urine Total 550 ml 700 ml # Voids 3 # Bowel Movements 1 Objective General Appearance: no acute distress, obese AA male A/A/O x 4 in NAD HEENT: normocephalic, atraumatic, anicteric, mucous membranes moist Respiratory/Chest: no respiratory distress, no accessory muscle use, decreased breath sounds at bases Cardiovascular: bradycardia - SB on tele Abdomen: normal bowel sounds, soft, non tender , obese Extremities: +1 edema BLE Neurologic/Psychiatric: alert, oriented x 3, responsive Musculoskeletal: normal muscle bulk Microbiology Date/Time Source Procedure Growth Status 10/17/18 12:33 Ascities Fluid Gram Stain - Final Resulted 10/17/18 12:33 Ascities Fluid Body Fluid Culture Pending Resulted Laboratory Tests 10/17/18 09:50: Troponin I 0.095H 10/17/18 12:33: Body Fluid Source Thoracentesis, Body Fluid Volume 9 ml, Body Fluid Appearance Yellow/sl hazy, Body Fluid RBC 2315, Body Fluid Total Nucleated Cells 685, Body Fluid Albumin [Pending] 10/18/18 07:11: Troponin I 0.081H, White Blood Count 13.5H, Red Blood Count 4.27L, Hemoglobin 10.3L, Hematocrit 33.8L, Mean Corpuscular Volume 79L, Mean Corpuscular Hemoglobin 24.2L, Mean Corpuscular Hemoglobin Concent 30.5L, Red Cell Distribution Width 16.6H, Platelet Count 220, Mean Platelet Volume 6.9, Neutrophils (%) (Auto) 77.7H, Lymphocytes (%) (Auto) 11.2L, Monocytes (%) (Auto ) 7.2, Eosinophils (%) (Auto) 3.2H, Basophils (%) (Auto) 0.6, Sodium Level [ Pending], Potassium Level [Pending], Chloride Level [Pending], Carbon Dioxide Level [Pending], Blood Urea Nitrogen [Pending], Creatinine [Pending], Estimat Glomerular Filtration Rate [Pending], Glucose Level [Pending], Calcium Level [ Pending] Current Medications Medications (Trade) Dose Ordered Sig/Musa Route PRN Reason Start Time Stop Time Status Last Admin Dose Admin Acetaminophen (Tylenol) 650 mg Q4H PRN ORAL T>100.5 10/16/18 10:00 11/15/18 09:59 Albuterol/ Ipratropium (Albuterol/ Ipratropium) 3 ml Q4H PRN HHN Shortness of Breath 10/16/18 10:00 10/21/18 09:59 Amlodipine Besylate (Norvasc) 10 mg DAILY ORAL 10/17/18 09:00 11/16/18 08:59 10/17/18 09:06 Aspirin (Ecotrin) 81 mg DAILY ORAL 10/17/18 09:00 11/16/18 08:59 10/17/18 09:06 Azithromycin (Zithromax) 500 mg DAILY ORAL 10/16/18 14:30 10/23/18 14:29 10/17/18 09:06 Ceftriaxone Sodium 1 gm/ Dextrose 55 ml @ 110 mls/hr Q24H IVPB 10/16/18 16:00 10/23/18 15:59 10/17/18 14:53 Dextrose (Dextrose 50%) 25 ml Q30M PRN IV Hypoglycemia 10/16/18 16:45 11/15/18 16:44 Dextrose (Dextrose 50%) 50 ml Q30M PRN IV Hypoglycemia 10/16/18 16:45 11/15/18 16:44 Furosemide 100 mg/ Dextrose 110 ml @ 11 mls/hr Q10H IV 10/16/18 11:30 11/15/18 11:29 10/18/18 03:43 Heparin Sodium (Porcine) (Heparin 5000 units/ml) 5,000 units EVERY 12 HOURS SUBQ 10/16/18 21:00 11/15/18 20:59 10/17/18 21:31 Hydralazine HCl (Apresoline) 50 mg EVERY 8 HOURS ORAL 10/16/18 14:00 11/15/18 13:59 10/18/18 05:59 Insulin Aspart (NovoLOG) BEFORE MEALS AND HS SUBQ 10/16/18 21:00 11/15/18 20:59 10/18/18 05:56 Lisinopril (Prinivil) 40 mg DAILY ORAL 10/17/18 09:00 11/16/18 08:59 10/17/18 09:08 Ondansetron HCl (Zofran) 4 mg Q6H PRN IVP Nausea & Vomiting 10/16/18 10:00 11/15/18 09:59 Polyethylene Glycol (Miralax) 17 gm DAILYPRN PRN ORAL Constipation 10/16/18 10:00 11/15/18 09:59 Pravastatin Sodium (Pravachol) 10 mg BEDTIME ORAL 10/16/18 21:00 11/15/18 20:59 10/17/18 21:31 Temazepam (Restoril) 15 mg HSPRN PRN ORAL Insomnia 10/16/18 21:00 10/23/18 20:59 10/17/18 23:43 Ayana Salgado [employer] Oct 18, 2018 08:24
[2018-10-18 08:33] LABS: ANION GAP 9 mmol/L (5-15); BLOOD UREA NITROGEN 40 mg/dL (7-18); CALCIUM 8.8 MG/DL (8.5-10.1); CARBON DIOXIDE 28 MMOL/L (21-32); CHLORIDE 102 MMOL/L (98-107); CREATININE 1.8 MG/DL (0.55-1.30); POTASSIUM 3.9 MMOL/L (3.5-5.1); SODIUM 139 MMOL/L (136-145)
[2018-10-18] MEDS: Lisinopril 20mg tab ORAL SCH (09:31)
[2018-10-18] MEDS: Aspirin EC 81mg tab ORAL SCH (09:31)
[2018-10-18] MEDS: Azithromycin 250mg tab ORAL SCH (09:31)
[2018-10-18] MEDS: Heparin 5000 units/ml inj SUBQ SCH ×2 (09:36→21:06)
--- NOTE | 2018-10-18 09:49 | Diagnostic Imaging Report ---
EXAM: XR Chest, 1 View CLINICAL HISTORY: SOB TECHNIQUE: Frontal view of the chest. COMPARISON: Chest x-ray, 10/17/18 832 FINDINGS: Lungs: Slightly improved bilateral airspace opacities. Pleural space: Improved tiny left pleural effusion. No pneumothorax. Heart: Cardiomegaly. Mediastinum: Unremarkable. Bones/joints: Unremarkable. IMPRESSION: 1. Slightly improved bilateral airspace opacities. 2. Improved tiny left pleural effusion.
[2018-10-18 12:00] VITALS: BP 153/65
--- NOTE | 2018-10-18 13:32 | Cardiology Progress Note ---
Assessment/Plan Assessment/Plan 1. Probable diastolic heart failure. 2. Possible pneumonia. 3. Pulmonary hypertension. 4. Renal insufficiency. 5. Minimally abnormal cardiac enzymes of questionable significance in light of renal insufficiency. 6. Morbid obesity. 7. Anemia. 8. Diabetes. 9. Hypertension. symptoms marvin is better keep neg fluid balance on lasix drip trop without any peak or janeth not reach level for mi based on WHO criterea bp control once chf better cxr worse likley lag on max dose of lisnopril and norvasc may need increase in hydralazine Subjective Cardiovascular: Denies: chest pain, lightheadedness Respiratory: Denies: shortness of breath, SOB with excertion Gastrointestinal/Abdominal: Denies: abdominal pain Genitourinary: Denies: burning Objective Last 24 Hour Vital Signs Date Time Temp Pulse Resp B/P (MAP) Pulse Ox O2 Delivery O2 Flow Rate FiO2 10/18/18 12:00 52 10/18/18 09:50 98 Nasal Cannula 3.0 32 10/18/18 09:50 Nasal Cannula 3.0 32 10/18/18 09:48 57 18 Nasal Cannula 3.0 32 10/18/18 09:31 162/70 10/18/18 09:31 69 162/70 10/18/18 09:00 Nasal Cannula 2.0 10/18/18 08:00 55 10/18/18 08:00 97.6 55 19 157/68 (97) 97 10/18/18 05:59 162/70 10/18/18 04:00 69 10/18/18 04:00 98.0 58 19 128/72 (90) 99 10/18/18 00:00 98.4 60 20 147/63 (91) 95 10/18/18 00:00 61 10/17/18 21:32 146/68 10/17/18 21:00 Nasal Cannula 2.0 10/17/18 20:49 62 18 Nasal Cannula 3.0 32 10/17/18 20:00 58 10/17/18 20:00 98.5 61 19 146/68 (94) 97 10/17/18 16:00 57 10/17/18 16:00 98.0 57 19 141/73 (95) 97 10/17/18 14:52 138/82 General Appearance: no apparent distress, alert Neck: no JVD Cardiovascular: normal rate, regular rhythm Respiratory/Chest: crackles/rales - min at bases Abdomen: normal bowel sounds, non tender, soft Extremities: trace edema Intake and Output 10/17/18 10/18/18 19:00 07:00 Intake Total 1200 ml Output Total 550 ml 700 ml Balance 650 ml -700 ml Intake Oral 1200 ml Output Urine Total 550 ml 700 ml # Voids 3 # Bowel Movements 1 Laboratory Tests Test 10/18/18 07:11 White Blood Count 13.5 K/UL (4.8-10.8) H Red Blood Count 4.27 M/UL (4.70-6.10) L Hemoglobin 10.3 G/DL (14.2-18.0) L Hematocrit 33.8 % (42.0-52.0) L Mean Corpuscular Volume 79 FL (80-99) L Mean Corpuscular Hemoglobin 24.2 PG (27.0-31.0) L Mean Corpuscular Hemoglobin Concent 30.5 G/DL (32.0-36.0) L Red Cell Distribution Width 16.6 % (11.6-14.8) H Platelet Count 220 K/UL (150-450) Mean Platelet Volume 6.9 FL (6.5-10.1) Neutrophils (%) (Auto) 77.7 % (45.0-75.0) H Lymphocytes (%) (Auto) 11.2 % (20.0-45.0) L Monocytes (%) (Auto) 7.2 % (1.0-10.0) Eosinophils (%) (Auto) 3.2 % (0.0-3.0) H Basophils (%) (Auto) 0.6 % (0.0-2.0) Sodium Level 139 MMOL/L (136-145) Potassium Level 3.9 MMOL/L (3.5-5.1) Chloride Level 102 MMOL/L (98-107) Carbon Dioxide Level 28 MMOL/L (21-32) Anion Gap 9 mmol/L (5-15) Blood Urea Nitrogen 40 mg/dL (7-18) H Creatinine 1.8 MG/DL (0.55-1.30) H Estimat Glomerular Filtration Rate mL/min (>60) Glucose Level 212 MG/DL (74-106) H Calcium Level 8.8 MG/DL (8.5-10.1) Troponin I 0.081 ng/mL (0.000-0.056) Microbiology Date/Time Source Procedure Growth Status 10/17/18 12:33 Ascities Fluid Gram Stain - Final Resulted 10/17/18 12:33 Ascities Fluid Body Fluid Culture Pending Resulted Herman Cruz MD Oct 18, 2018 13:32
[2018-10-18] MEDS: HydrALAZINE 25mg tab ORAL SCH ×2 (14:12→21:07)
--- NOTE | 2018-10-18 15:05 | Internal Med Progress Note ---
Subjective Date of Service: Oct 18, 2018 Physician Name Layo Angel Attending Physician Jean Paul Segura MD Current Medications Medications (Trade) Dose Ordered Sig/Musa Route PRN Reason Start Time Stop Time Status Last Admin Dose Admin Acetaminophen (Tylenol) 650 mg Q4H PRN ORAL T>100.5 10/16/18 10:00 11/15/18 09:59 Albuterol/ Ipratropium (Albuterol/ Ipratropium) 3 ml Q4H PRN HHN Shortness of Breath 10/16/18 10:00 10/21/18 09:59 Amlodipine Besylate (Norvasc) 10 mg DAILY ORAL 10/17/18 09:00 11/16/18 08:59 10/18/18 09:31 Aspirin (Ecotrin) 81 mg DAILY ORAL 10/17/18 09:00 11/16/18 08:59 10/18/18 09:31 Azithromycin (Zithromax) 500 mg DAILY ORAL 10/16/18 14:30 10/23/18 14:29 10/18/18 09:31 Ceftriaxone Sodium 1 gm/ Dextrose 55 ml @ 110 mls/hr Q24H IVPB 10/16/18 16:00 10/23/18 15:59 10/17/18 14:53 Dextrose (Dextrose 50%) 25 ml Q30M PRN IV Hypoglycemia 10/18/18 15:00 11/17/18 14:59 Dextrose (Dextrose 50%) 50 ml Q30M PRN IV Hypoglycemia 10/18/18 15:00 11/17/18 14:59 Furosemide 100 mg/ Dextrose 110 ml @ 11 mls/hr Q10H IV 10/16/18 11:30 11/15/18 11:29 10/18/18 14:12 Heparin Sodium (Porcine) (Heparin 5000 units/ml) 5,000 units EVERY 12 HOURS SUBQ 10/16/18 21:00 11/15/18 20:59 10/18/18 09:36 Hydralazine HCl (Apresoline) 75 mg EVERY 8 HOURS ORAL 10/18/18 14:00 11/17/18 13:59 10/18/18 14:12 Insulin Aspart (NovoLOG) BEFORE MEALS AND HS SUBQ 10/18/18 16:30 11/17/18 16:29 Lisinopril (Prinivil) 40 mg DAILY ORAL 10/17/18 09:00 11/16/18 08:59 10/18/18 09:31 Ondansetron HCl (Zofran) 4 mg Q6H PRN IVP Nausea & Vomiting 10/16/18 10:00 11/15/18 09:59 Polyethylene Glycol (Miralax) 17 gm DAILYPRN PRN ORAL Constipation 10/16/18 10:00 11/15/18 09:59 Pravastatin Sodium (Pravachol) 10 mg BEDTIME ORAL 10/16/18 21:00 11/15/18 20:59 10/17/18 21:31 Temazepam (Restoril) 15 mg HSPRN PRN ORAL Insomnia 10/16/18 21:00 10/23/18 20:59 10/17/18 23:43 Allergies: Coded Allergies: No Known Allergies (Unverified , 10/16/18) ROS Limited/Unobtainable: No Constitutional: Reports: no symptoms HEENT: Reports: no symptoms Cardiovascular: Reports: no symptoms Respiratory: Reports: no symptoms Gastrointestinal/Abdominal: Reports: no symptoms Genitourinary: Reports: no symptoms Neurologic/Psychiatric: Reports: no symptoms Subjective 78 YO M admitted with chief complaint of shortness of breath. Now congestive heart failure and hypertensive urgency. Hyperglycemic overnight Objective Last Vital Signs Date Time Temp Pulse Resp B/P (MAP) Pulse Ox O2 Delivery O2 Flow Rate FiO2 10/18/18 14:12 153/65 10/18/18 12:00 52 10/18/18 12:00 98.3 16 96 10/18/18 09:50 Nasal Cannula 3.0 32 Laboratory Tests Test 10/18/18 07:11 10/18/18 13:45 White Blood Count 13.5 K/UL (4.8-10.8) H Red Blood Count 4.27 M/UL (4.70-6.10) L Hemoglobin 10.3 G/DL (14.2-18.0) L Hematocrit 33.8 % (42.0-52.0) L Mean Corpuscular Volume 79 FL (80-99) L Mean Corpuscular Hemoglobin 24.2 PG (27.0-31.0) L Mean Corpuscular Hemoglobin Concent 30.5 G/DL (32.0-36.0) L Red Cell Distribution Width 16.6 % (11.6-14.8) H Platelet Count 220 K/UL (150-450) Mean Platelet Volume 6.9 FL (6.5-10.1) Neutrophils (%) (Auto) 77.7 % (45.0-75.0) H Lymphocytes (%) (Auto) 11.2 % (20.0-45.0) L Monocytes (%) (Auto) 7.2 % (1.0-10.0) Eosinophils (%) (Auto) 3.2 % (0.0-3.0) H Basophils (%) (Auto) 0.6 % (0.0-2.0) Sodium Level 139 MMOL/L (136-145) Potassium Level 3.9 MMOL/L (3.5-5.1) Chloride Level 102 MMOL/L (98-107) Carbon Dioxide Level 28 MMOL/L (21-32) Anion Gap 9 mmol/L (5-15) Blood Urea Nitrogen 40 mg/dL (7-18) H Creatinine 1.8 MG/DL (0.55-1.30) H Estimat Glomerular Filtration Rate mL/min (>60) Glucose Level 212 MG/DL (74-106) H Calcium Level 8.8 MG/DL (8.5-10.1) Troponin I 0.081 ng/mL (0.000-0.056) Stool Occult Blood Pending Microbiology Date/Time Source Procedure Growth Status 10/17/18 12:33 Ascities Fluid Gram Stain - Final Resulted 10/17/18 12:33 Ascities Fluid Body Fluid Culture Pending Resulted Intake and Output 10/17/18 10/18/18 19:00 07:00 Intake Total 1200 ml Output Total 550 ml 700 ml Balance 650 ml -700 ml Intake Oral 1200 ml Output Urine Total 550 ml 700 ml # Voids 3 # Bowel Movements 1 Objective PHYSICAL EXAMINATION: GENERAL: The patient is awake and responsive, in no acute distress. HEAD AND NECK: Pupils are equal and reactive to light. Extraocular movements are intact. Neck was supple. No JVD. LUNGS: Good air entry. No wheezes or rales. HEART: S1, S2. Distant heart sounds. No gallops. ABDOMEN: Soft, nondistended, and nontender. Morbidly obese. EXTREMITIES: +1 edema bilateral lower extremities. NEUROLOGIC: Cranial nerves II through XII grossly intact. Moves all four extremities. Gait is intact. RECTAL: Refused and deferred. GENITOURINARY: Refused and deferred. PSYCHIATRIC: Mood and affect is intact. Assessment/Plan Assessment/Plan ASSESSMENT: 1. Acute congestive heart failure exacerbation on chronic with preserved ejection fraction, diastolic dysfunction. 2. Left-sided pleural effusion. 3. Morbid obesity. 4. Hypertension. 5. Dyslipidemia. 6. Diabetes type 2. 7. Dyspnea 8. Hyperglycemia PLAN: 1. Admit the patient to telemetry. 2. Pulmonary consultation with Dr. Juarez and 3. cardiology consultation with Dr. Herman Cruz. 4. The patient is S/P thoracocentesis; await results 5. Code status is Full Code. 2-D echo. DVT prophylaxis is heparin subcutaneous. Expected to be discharged within two to three days. 6. Increase novolog sliding scale to sensitive. Add Layo Reid MD Oct 18, 2018 15:05
[2018-10-18 16:00] VITALS: BP 147/62
[2018-10-18] MEDS: cefTRIAXone 1 GM in D5W 55 ML IVPB SCH (16:25)
[2018-10-18 20:00] VITALS: BP 147/62
--- NOTE | 2018-10-18 20:27 | NUR ---
HAND-OFF: Report from Guille NELSON. Patient is awake alert in bed, on Room air. Patient denies pain at this time, no shortness of breath. HR at SR 61 on the monitor. Patient with IV access on LH 20 with Lasix drip running at 11 ml/hr. Patient tolerating well. Call light within reach, bed in lowest position, side rails up x2. All needs met at this time, will continue to monitor for any acute changes.
[2018-10-18] MEDS ORDERED: Levemir Flexpen SUBQ SCH (21:00)
[2018-10-19] VITALS (7 sets, daily range): BP systolic 142–165; BP diastolic 59–70
[2018-10-19] MEDS: HydrALAZINE 25mg tab ORAL SCH ×2 (06:01→13:26)
[2018-10-19] MEDS: NovoLOG Insulin Flexpen SUBQ SCH ×4 (06:06→20:59)
--- NOTE | 2018-10-19 07:23 | NUR ---
NURSE NOTES: Received report from OMAR López. Patient in bed resting, no active s/s cardiac, respiratory distress noticed at this time, denies pain at this time. Patient on room air, SB with HR 59. IV site on right FA 20G, Lasix running at prescribed rate, asymptomatic, patent, intact. Bed in lowest position, side rails upx3, call light within reach. Will continue to monitor.
--- NOTE | 2018-10-19 07:23 | NUR ---
HAND-OFF: Report given to Bernie NELSON.
[2018-10-19 08:12] LABS: BASOPHILS % (AUTO) 0.4 % (0.0-2.0); EOSINOPHILS % (AUTO) 3.1 % (0.0-3.0); HEMATOCRIT 34.8 % (42.0-52.0); HEMOGLOBIN 10.7 G/DL (14.2-18.0); LYMPHOCYTES % (AUTO) 11.3 % (20.0-45.0); MEAN CORPUSCULAR VOLUME 79 FL (80-99); MONOCYTES % (AUTO) 6.7 % (1.0-10.0); NEUTROPHILS % (AUTO) 78.5 % (45.0-75.0); PLATELET COUNT 283 K/UL (150-450); RED BLOOD COUNT 4.43 M/UL (4.70-6.10); RED CELL DISTRIBUTION WIDTH 16.4 % (11.6-14.8); WHITE BLOOD COUNT 14.2 K/UL (4.8-10.8)
[2018-10-19] MEDS: Azithromycin 250mg tab ORAL SCH (08:19)
[2018-10-19] MEDS: Aspirin EC 81mg tab ORAL SCH (08:20)
[2018-10-19] MEDS: Lisinopril 20mg tab ORAL SCH (08:20)
[2018-10-19] MEDS: Heparin 5000 units/ml inj SUBQ SCH ×2 (08:22→20:42)
[2018-10-19 08:40] LABS: ANION GAP 9 mmol/L (5-15); BLOOD UREA NITROGEN 45 mg/dL (7-18); CALCIUM 9.1 MG/DL (8.5-10.1); CARBON DIOXIDE 30 MMOL/L (21-32); CHLORIDE 101 MMOL/L (98-107); CREATININE 1.9 MG/DL (0.55-1.30); POTASSIUM 3.6 MMOL/L (3.5-5.1); SODIUM 139 MMOL/L (136-145)
--- NOTE | 2018-10-19 11:32 | NUR ---
RADIOLOGY DEPT CHEST X-RAY DONE.-P.DYE
--- NOTE | 2018-10-19 12:40 | Diagnostic Imaging Report ---
Indication: Shortness of breath Technique: One view of the chest Comparison: 10/18/2017 Findings: The heart is enlarged. There is bilateral interstitial edema present, appearing unchanged. The pleural spaces are clear. No focal airspace consolidation Impression: Unchanged, over one day, findings as above.
--- NOTE | 2018-10-19 13:13 | Infectious Diseases Prog Note ---
Assessment/Plan Assessment/Plan Probable PNA -10/19 CXR: There is bilateral interstitial edema present, appearing unchanged. The pleural spaces are clear. No focal airspace consolidation -10/16 CXR: Extensive bilateral diffuse airspace opacities are noted. There may be some pleural fluid on the left. The heart is enlarged. Pulmonary edema R pleural effusion -10/16 sp R thoracentesis- cloudy fluid -fluid analysis: transudate - protein 2.9 (serum 7.8), LDH 89 ( serum 168); cx NTD -CXR: Resolved right pleural effusion, post thoracentesis. No radiographically evident complication Improved but persistent interstitial and airspace edema Afebrile Leukocytosis, overall improved -u/a neg CAD DM2 HTN Plan: -Continue Ceftriaxone #4/5-7 and azithromycin #4/5 for probable PNA -f/u sp cx, legionella ag urine, influenza sc -f/u cx -Monitor CBC/CMP, temperatures Will continue to follow along with you. . Subjective Allergies: Coded Allergies: No Known Allergies (Unverified , 10/16/18) Subjective afebrile at RA wbc overall improved Objective Vital Signs Last 24 Hour Vital Signs Date Time Temp Pulse Resp B/P (MAP) Pulse Ox O2 Delivery O2 Flow Rate FiO2 10/19/18 09:50 Room Air 21 10/19/18 09:50 94 Room Air 21 10/19/18 09:50 65 18 Room Air 21 10/19/18 09:00 Nasal Cannula 2.0 10/19/18 08:20 165/60 10/19/18 08:20 69 165/60 10/19/18 08:00 98.6 71 20 165/60 (95) 96 10/19/18 08:00 67 10/19/18 06:01 148/70 10/19/18 04:00 99.3 66 19 148/70 (96) 98 10/19/18 04:00 59 10/19/18 00:00 99.4 64 19 149/67 (94) 96 10/19/18 00:00 65 10/18/18 21:33 96 Room Air 21 10/18/18 21:33 64 18 Room Air 21 10/18/18 21:33 Room Air 21 10/18/18 21:16 Nasal Cannula 2.0 10/18/18 21:07 147/62 10/18/18 20:00 55 10/18/18 20:00 98.3 55 18 147/62 (90) 96 10/18/18 16:00 55 10/18/18 16:00 98.3 55 18 147/62 (90) 96 10/18/18 14:12 153/65 Height (Feet): 5 Height (Inches): 8.00 Weight (Pounds): 189 Objective General Appearance: no acute distress, obese AA male A/A/O x 4 in NAD HEENT: normocephalic, atraumatic, anicteric, mucous membranes moist Respiratory/Chest: no respiratory distress, no accessory muscle use, decreased breath sounds at bases Cardiovascular: bradycardia - SB on tele Abdomen: normal bowel sounds, soft, non tender , obese Extremities: +1 edema BLE Neurologic/Psychiatric: alert, oriented x 3, responsive Musculoskeletal: normal muscle bulk Microbiology Date/Time Source Procedure Growth Status 10/17/18 12:33 Ascities Fluid Gram Stain - Final Resulted 10/17/18 12:33 Ascities Fluid Body Fluid Culture - Preliminary NO GROWTH Resulted Laboratory Tests Test 10/18/18 13:45 10/19/18 07:33 Stool Occult Blood Negative (NEGATIVE) White Blood Count 14.2 K/UL (4.8-10.8) H Red Blood Count 4.43 M/UL (4.70-6.10) L Hemoglobin 10.7 G/DL (14.2-18.0) L Hematocrit 34.8 % (42.0-52.0) L Mean Corpuscular Volume 79 FL (80-99) L Mean Corpuscular Hemoglobin 24.0 PG (27.0-31.0) L Mean Corpuscular Hemoglobin Concent 30.6 G/DL (32.0-36.0) L Red Cell Distribution Width 16.4 % (11.6-14.8) H Platelet Count 283 K/UL (150-450) Mean Platelet Volume 7.9 FL (6.5-10.1) Neutrophils (%) (Auto) 78.5 % (45.0-75.0) H Lymphocytes (%) (Auto) 11.3 % (20.0-45.0) L Monocytes (%) (Auto) 6.7 % (1.0-10.0) Eosinophils (%) (Auto) 3.1 % (0.0-3.0) H Basophils (%) (Auto) 0.4 % (0.0-2.0) Sodium Level 139 MMOL/L (136-145) Potassium Level 3.6 MMOL/L (3.5-5.1) Chloride Level 101 MMOL/L (98-107) Carbon Dioxide Level 30 MMOL/L (21-32) Anion Gap 9 mmol/L (5-15) Blood Urea Nitrogen 45 mg/dL (7-18) H Creatinine 1.9 MG/DL (0.55-1.30) H Estimat Glomerular Filtration Rate mL/min (>60) Glucose Level 232 MG/DL (74-106) H Calcium Level 9.1 MG/DL (8.5-10.1) Pro-B-Type Natriuretic Peptide 180 pg/mL (0-125) H Current Medications Medications (Trade) Dose Ordered Sig/Musa Route PRN Reason Start Time Stop Time Status Last Admin Dose Admin Acetaminophen (Tylenol) 650 mg Q4H PRN ORAL T>100.5 10/16/18 10:00 11/15/18 09:59 Albuterol/ Ipratropium (Albuterol/ Ipratropium) 3 ml Q4H PRN HHN Shortness of Breath 10/16/18 10:00 10/21/18 09:59 Amlodipine Besylate (Norvasc) 10 mg DAILY ORAL 10/17/18 09:00 11/16/18 08:59 10/19/18 08:20 Aspirin (Ecotrin) 81 mg DAILY ORAL 10/17/18 09:00 11/16/18 08:59 10/19/18 08:20 Azithromycin (Zithromax) 500 mg DAILY ORAL 10/16/18 14:30 10/23/18 14:29 10/19/18 08:19 Ceftriaxone Sodium 1 gm/ Dextrose 55 ml @ 110 mls/hr Q24H IVPB 10/16/18 16:00 10/23/18 15:59 10/18/18 16:25 Dextrose (Dextrose 50%) 25 ml Q30M PRN IV Hypoglycemia 10/18/18 15:00 11/17/18 14:59 Dextrose (Dextrose 50%) 50 ml Q30M PRN IV Hypoglycemia 10/18/18 15:00 11/17/18 14:59 Furosemide 100 mg/ Dextrose 110 ml @ 11 mls/hr Q10H IV 10/16/18 11:30 11/15/18 11:29 10/19/18 09:37 Heparin Sodium (Porcine) (Heparin 5000 units/ml) 5,000 units EVERY 12 HOURS SUBQ 10/16/18 21:00 11/15/18 20:59 10/19/18 08:22 Hydralazine HCl (Apresoline) 75 mg EVERY 8 HOURS ORAL 10/18/18 14:00 11/17/18 13:59 10/19/18 06:01 Insulin Aspart (NovoLOG) BEFORE MEALS AND HS SUBQ 10/18/18 16:30 11/17/18 16:29 10/19/18 11:38 Insulin Detemir (Levemir) 10 units BEDTIME SUBQ 10/18/18 21:00 11/17/18 20:59 10/18/18 21:08 Lisinopril (Prinivil) 40 mg DAILY ORAL 10/17/18 09:00 11/16/18 08:59 10/19/18 08:20 Ondansetron HCl (Zofran) 4 mg Q6H PRN IVP Nausea & Vomiting 10/16/18 10:00 11/15/18 09:59 Polyethylene Glycol (Miralax) 17 gm DAILYPRN PRN ORAL Constipation 10/16/18 10:00 11/15/18 09:59 Pravastatin Sodium (Pravachol) 10 mg BEDTIME ORAL 10/16/18 21:00 11/15/18 20:59 10/18/18 21:07 Temazepam (Restoril) 15 mg HSPRN PRN ORAL Insomnia 10/16/18 21:00 10/23/18 20:59 10/17/18 23:43 Jill Zepeda M.D. Oct 19, 2018 13:13
--- NOTE | 2018-10-19 13:47 | Pulmonology Progress Note ---
Assessment/Plan Problems: (1) Acute exacerbation of CHF (congestive heart failure) (2) Hypertensive emergency (3) Sepsis Assessment & Plan: wbc decreasing, no cultures yet (4) Acute respiratory failure with hypoxia (5) Pulmonary edema (6) Diabetes mellitus (7) Hypertension (8) Diabetic nephropathy Assessment/Plan d/c lasix drip to PO reorder US of kidney again continue abx pt/ot increase levemir f/u cardiology recommendations Subjective ROS Limited/Unobtainable: No Constitutional: Reports: no symptoms HEENT: Repors: no symptoms Respiratory: Reports: no symptoms Cardiovascular: Reports: no symptoms Gastrointestinal/Abdominal: Reports: no symptoms Allergies: Coded Allergies: No Known Allergies (Unverified , 10/16/18) Objective Last 24 Hour Vital Signs Date Time Temp Pulse Resp B/P (MAP) Pulse Ox O2 Delivery O2 Flow Rate FiO2 10/19/18 13:26 142/60 10/19/18 09:50 Room Air 21 10/19/18 09:50 94 Room Air 21 10/19/18 09:50 65 18 Room Air 21 10/19/18 09:00 Nasal Cannula 2.0 10/19/18 08:20 165/60 10/19/18 08:20 69 165/60 10/19/18 08:00 98.6 71 20 165/60 (95) 96 10/19/18 08:00 67 10/19/18 06:01 148/70 10/19/18 04:00 99.3 66 19 148/70 (96) 98 10/19/18 04:00 59 10/19/18 00:00 99.4 64 19 149/67 (94) 96 10/19/18 00:00 65 10/18/18 21:33 96 Room Air 21 10/18/18 21:33 64 18 Room Air 21 10/18/18 21:33 Room Air 21 10/18/18 21:16 Nasal Cannula 2.0 10/18/18 21:07 147/62 10/18/18 20:00 55 10/18/18 20:00 98.3 55 18 147/62 (90) 96 10/18/18 16:00 55 10/18/18 16:00 98.3 55 18 147/62 (90) 96 10/18/18 14:12 153/65 Intake and Output 10/18/18 10/19/18 19:00 07:00 Intake Total 480 ml Output Total 1050 ml 1000 ml Balance -570 ml -1000 ml Intake Oral 480 ml Output Urine Total 1050 ml 1000 ml # Voids 5 General Appearance: WD/WN HEENT: normocephalic Respiratory/Chest: chest wall non-tender, lungs clear Cardiovascular: normal peripheral pulses, regular rhythm Abdomen: normal bowel sounds, soft, non tender Extremities: no cyanosis Skin: no ulcers Neurologic/Psychiatric: e business consultant II-XII grossly normal Microbiology Date/Time Source Procedure Growth Status 10/17/18 12:33 Ascities Fluid Gram Stain - Final Resulted 10/17/18 12:33 Ascities Fluid Body Fluid Culture - Preliminary NO GROWTH Resulted Laboratory Tests 10/19/18 07:33: White Blood Count 14.2H, Red Blood Count 4.43L, Hemoglobin 10.7L, Hematocrit 34.8L, Mean Corpuscular Volume 79L, Mean Corpuscular Hemoglobin 24.0L, Mean Corpuscular Hemoglobin Concent 30.6L, Red Cell Distribution Width 16.4H, Platelet Count 283, Mean Platelet Volume 7.9, Neutrophils (%) (Auto) 78.5H, Lymphocytes (%) (Auto) 11.3L, Monocytes (%) (Auto) 6.7, Eosinophils (%) (Auto) 3.1H, Basophils (%) (Auto) 0.4, Sodium Level 139, Potassium Level 3.6, Chloride Level 101, Carbon Dioxide Level 30, Anion Gap 9, Blood Urea Nitrogen 45H, Creatinine 1.9H, Estimat Glomerular Filtration Rate , Glucose Level 232H, Calcium Level 9.1, Pro-B-Type Natriuretic Peptide 180H Current Medications Medications (Trade) Dose Ordered Sig/Musa Route PRN Reason Start Time Stop Time Status Last Admin Dose Admin Acetaminophen (Tylenol) 650 mg Q4H PRN ORAL T>100.5 10/16/18 10:00 11/15/18 09:59 Albuterol/ Ipratropium (Albuterol/ Ipratropium) 3 ml Q4H PRN HHN Shortness of Breath 10/16/18 10:00 10/21/18 09:59 Amlodipine Besylate (Norvasc) 10 mg DAILY ORAL 10/17/18 09:00 11/16/18 08:59 10/19/18 08:20 Aspirin (Ecotrin) 81 mg DAILY ORAL 10/17/18 09:00 11/16/18 08:59 10/19/18 08:20 Azithromycin (Zithromax) 500 mg DAILY ORAL 10/16/18 14:30 10/23/18 14:29 10/19/18 08:19 Ceftriaxone Sodium 1 gm/ Dextrose 55 ml @ 110 mls/hr Q24H IVPB 10/16/18 16:00 10/23/18 15:59 10/18/18 16:25 Dextrose (Dextrose 50%) 25 ml Q30M PRN IV Hypoglycemia 10/18/18 15:00 11/17/18 14:59 Dextrose (Dextrose 50%) 50 ml Q30M PRN IV Hypoglycemia 10/18/18 15:00 11/17/18 14:59 Furosemide 100 mg/ Dextrose 110 ml @ 11 mls/hr Q10H IV 10/16/18 11:30 11/15/18 11:29 10/19/18 09:37 Heparin Sodium (Porcine) (Heparin 5000 units/ml) 5,000 units EVERY 12 HOURS SUBQ 10/16/18 21:00 11/15/18 20:59 10/19/18 08:22 Hydralazine HCl (Apresoline) 75 mg EVERY 8 HOURS ORAL 10/18/18 14:00 11/17/18 13:59 10/19/18 13:26 Insulin Aspart (NovoLOG) BEFORE MEALS AND HS SUBQ 10/18/18 16:30 11/17/18 16:29 10/19/18 11:38 Insulin Detemir (Levemir) 10 units BEDTIME SUBQ 10/18/18 21:00 11/17/18 20:59 10/18/18 21:08 Lisinopril (Prinivil) 40 mg DAILY ORAL 10/17/18 09:00 11/16/18 08:59 10/19/18 08:20 Ondansetron HCl (Zofran) 4 mg Q6H PRN IVP Nausea & Vomiting 10/16/18 10:00 11/15/18 09:59 Polyethylene Glycol (Miralax) 17 gm DAILYPRN PRN ORAL Constipation 10/16/18 10:00 11/15/18 09:59 Pravastatin Sodium (Pravachol) 10 mg BEDTIME ORAL 10/16/18 21:00 11/15/18 20:59 10/18/18 21:07 Temazepam (Restoril) 15 mg HSPRN PRN ORAL Insomnia 10/16/18 21:00 10/23/18 20:59 10/17/18 23:43 Janell Juarez MD Oct 19, 2018 13:47
--- NOTE | 2018-10-19 14:00 | NUR ---
NURSE NOTES: PT evaluation per Dr. Juarez, order entered, noted, carried out.
--- NOTE | 2018-10-19 14:27 | NUR ---
NURSE NOTES: Dr. Cruz made aware of HR 39 at 1220 and now HR 67. No order given yet. Will continue to monitor.
[2018-10-19] MEDS: cefTRIAXone 1 GM in D5W 55 ML IVPB SCH (16:01)
--- NOTE | 2018-10-19 16:17 | Diagnostic Imaging Report ---
Indication: Acute renal failure Technique: Grayscale and duplex images of the kidneys, retroperitoneum, and bladder were obtained. Comparison: Findings: Right kidney measures 9.3 cm in length. Left kidney measures 10.6 cm in length. Both kidneys demonstrate normal echogenicity. Both kidneys demonstrate lobulated margins. No hydronephrosis. Cysts are seen in both kidneys.. Normal inferior vena cava. Bladder is nondistended. Prostate is prominent, calculated volume 32 mL. Impression: Negative for hydronephrosis Incidental finding bilateral renal cysts 32 mL prostate.
--- NOTE | 2018-10-19 16:50 | NUR ---
NURSE NOTES: Dr. Juarez made aware of result of STAT renal US, no order given at this time, will continue to monitor.
--- NOTE | 2018-10-19 19:03 | Cardiology Progress Note ---
Assessment/Plan Assessment/Plan 1. Probable diastolic heart failure. 2. Possible pneumonia. 3. Pulmonary hypertension. 4. Renal insufficiency. 5. Minimally abnormal cardiac enzymes of questionable significance in light of renal insufficiency. 6. Morbid obesity. 7. Anemia. 8. Diabetes. 9. Hypertension. symptoms marvin is better agree with switch to po lasix trop without any peak or janeth not reach level for mi based on WHO criterea bp control once chf better cxr worse likley lag on max dose of lisnopril and norvasc increase in hydralazine Subjective Cardiovascular: Denies: chest pain Respiratory: Denies: shortness of breath Gastrointestinal/Abdominal: Denies: abdominal pain Genitourinary: Denies: burning Objective Last 24 Hour Vital Signs Date Time Temp Pulse Resp B/P (MAP) Pulse Ox O2 Delivery O2 Flow Rate FiO2 10/19/18 16:00 57 10/19/18 16:00 98.5 64 18 154/61 (92) 97 10/19/18 13:26 142/60 10/19/18 12:00 98.7 62 20 142/59 (86) 98 10/19/18 12:00 39 10/19/18 09:50 Room Air 21 10/19/18 09:50 94 Room Air 21 10/19/18 09:50 65 18 Room Air 21 10/19/18 09:00 Nasal Cannula 2.0 10/19/18 08:20 165/60 10/19/18 08:20 69 165/60 10/19/18 08:00 98.6 71 20 165/60 (95) 96 10/19/18 08:00 67 10/19/18 06:01 148/70 10/19/18 04:00 99.3 66 19 148/70 (96) 98 10/19/18 04:00 59 10/19/18 00:00 99.4 64 19 149/67 (94) 96 10/19/18 00:00 65 10/18/18 21:33 96 Room Air 21 10/18/18 21:33 64 18 Room Air 21 10/18/18 21:33 Room Air 21 10/18/18 21:16 Nasal Cannula 2.0 10/18/18 21:07 147/62 10/18/18 20:00 55 10/18/18 20:00 98.3 55 18 147/62 (90) 96 General Appearance: no apparent distress, alert Cardiovascular: normal rate, regular rhythm Respiratory/Chest: lungs clear, normal breath sounds Abdomen: normal bowel sounds, non tender, soft Extremities: no swelling Intake and Output 10/18/18 10/19/18 19:00 07:00 Intake Total 480 ml Output Total 1050 ml 1000 ml Balance -570 ml -1000 ml Intake Oral 480 ml Output Urine Total 1050 ml 1000 ml # Voids 5 Laboratory Tests Test 10/19/18 07:33 White Blood Count 14.2 K/UL (4.8-10.8) H Red Blood Count 4.43 M/UL (4.70-6.10) L Hemoglobin 10.7 G/DL (14.2-18.0) L Hematocrit 34.8 % (42.0-52.0) L Mean Corpuscular Volume 79 FL (80-99) L Mean Corpuscular Hemoglobin 24.0 PG (27.0-31.0) L Mean Corpuscular Hemoglobin Concent 30.6 G/DL (32.0-36.0) L Red Cell Distribution Width 16.4 % (11.6-14.8) H Platelet Count 283 K/UL (150-450) Mean Platelet Volume 7.9 FL (6.5-10.1) Neutrophils (%) (Auto) 78.5 % (45.0-75.0) H Lymphocytes (%) (Auto) 11.3 % (20.0-45.0) L Monocytes (%) (Auto) 6.7 % (1.0-10.0) Eosinophils (%) (Auto) 3.1 % (0.0-3.0) H Basophils (%) (Auto) 0.4 % (0.0-2.0) Sodium Level 139 MMOL/L (136-145) Potassium Level 3.6 MMOL/L (3.5-5.1) Chloride Level 101 MMOL/L (98-107) Carbon Dioxide Level 30 MMOL/L (21-32) Anion Gap 9 mmol/L (5-15) Blood Urea Nitrogen 45 mg/dL (7-18) H Creatinine 1.9 MG/DL (0.55-1.30) H Estimat Glomerular Filtration Rate mL/min (>60) Glucose Level 232 MG/DL (74-106) H Calcium Level 9.1 MG/DL (8.5-10.1) Pro-B-Type Natriuretic Peptide 180 pg/mL (0-125) H Microbiology Date/Time Source Procedure Growth Status 10/17/18 12:33 Ascities Fluid Gram Stain - Final Resulted 10/17/18 12:33 Ascities Fluid Body Fluid Culture - Preliminary NO GROWTH Resulted Herman Cruz MD Oct 19, 2018 19:03
--- NOTE | 2018-10-19 19:17 | Internal Med Progress Note ---
Subjective Date of Service: Oct 19, 2018 Physician Name Layo Angel Attending Physician Jean Paul Segura MD Current Medications Medications (Trade) Dose Ordered Sig/Musa Route PRN Reason Start Time Stop Time Status Last Admin Dose Admin Acetaminophen (Tylenol) 650 mg Q4H PRN ORAL T>100.5 10/16/18 10:00 11/15/18 09:59 Albuterol/ Ipratropium (Albuterol/ Ipratropium) 3 ml Q4H PRN HHN Shortness of Breath 10/16/18 10:00 10/21/18 09:59 Amlodipine Besylate (Norvasc) 10 mg DAILY ORAL 10/17/18 09:00 11/16/18 08:59 10/19/18 08:20 Aspirin (Ecotrin) 81 mg DAILY ORAL 10/17/18 09:00 11/16/18 08:59 10/19/18 08:20 Azithromycin (Zithromax) 500 mg DAILY ORAL 10/16/18 14:30 10/23/18 14:29 10/19/18 08:19 Ceftriaxone Sodium 1 gm/ Dextrose 55 ml @ 110 mls/hr Q24H IVPB 10/16/18 16:00 10/23/18 15:59 10/19/18 16:01 Dextrose (Dextrose 50%) 25 ml Q30M PRN IV Hypoglycemia 10/18/18 15:00 11/17/18 14:59 Dextrose (Dextrose 50%) 50 ml Q30M PRN IV Hypoglycemia 10/18/18 15:00 11/17/18 14:59 Furosemide (Lasix) 40 mg EVERY 12 HOURS ORAL 10/19/18 21:00 11/18/18 20:59 Heparin Sodium (Porcine) (Heparin 5000 units/ml) 5,000 units EVERY 12 HOURS SUBQ 10/16/18 21:00 11/15/18 20:59 10/19/18 08:22 Hydralazine HCl (Apresoline) 100 mg EVERY 8 HOURS ORAL 10/19/18 22:00 11/18/18 21:59 Insulin Aspart (NovoLOG) BEFORE MEALS AND HS SUBQ 10/18/18 16:30 11/17/18 16:29 10/19/18 16:57 Insulin Detemir (Levemir) 10 units EVERY 12 HOURS SUBQ 10/19/18 21:00 11/17/18 20:59 Lisinopril (Prinivil) 40 mg DAILY ORAL 10/17/18 09:00 11/16/18 08:59 10/19/18 08:20 Ondansetron HCl (Zofran) 4 mg Q6H PRN IVP Nausea & Vomiting 10/16/18 10:00 11/15/18 09:59 Polyethylene Glycol (Miralax) 17 gm DAILYPRN PRN ORAL Constipation 10/16/18 10:00 11/15/18 09:59 Pravastatin Sodium (Pravachol) 10 mg BEDTIME ORAL 10/16/18 21:00 11/15/18 20:59 10/18/18 21:07 Temazepam (Restoril) 15 mg HSPRN PRN ORAL Insomnia 10/16/18 21:00 10/23/18 20:59 10/17/18 23:43 Allergies: Coded Allergies: No Known Allergies (Unverified , 10/16/18) ROS Limited/Unobtainable: No Constitutional: Reports: no symptoms HEENT: Reports: no symptoms Cardiovascular: Reports: no symptoms Respiratory: Reports: no symptoms Gastrointestinal/Abdominal: Reports: no symptoms Genitourinary: Reports: no symptoms Neurologic/Psychiatric: Reports: no symptoms Subjective 78 YO M admitted with chief complaint of shortness of breath. Now congestive heart failure and hypertensive urgency. Hyperglycemic overnight Objective Last Vital Signs Date Time Temp Pulse Resp B/P (MAP) Pulse Ox O2 Delivery O2 Flow Rate FiO2 10/19/18 16:00 57 10/19/18 16:00 98.5 18 154/61 (92) 97 10/19/18 09:50 Room Air 21 10/19/18 09:00 2.0 Laboratory Tests Test 10/19/18 07:33 White Blood Count 14.2 K/UL (4.8-10.8) H Red Blood Count 4.43 M/UL (4.70-6.10) L Hemoglobin 10.7 G/DL (14.2-18.0) L Hematocrit 34.8 % (42.0-52.0) L Mean Corpuscular Volume 79 FL (80-99) L Mean Corpuscular Hemoglobin 24.0 PG (27.0-31.0) L Mean Corpuscular Hemoglobin Concent 30.6 G/DL (32.0-36.0) L Red Cell Distribution Width 16.4 % (11.6-14.8) H Platelet Count 283 K/UL (150-450) Mean Platelet Volume 7.9 FL (6.5-10.1) Neutrophils (%) (Auto) 78.5 % (45.0-75.0) H Lymphocytes (%) (Auto) 11.3 % (20.0-45.0) L Monocytes (%) (Auto) 6.7 % (1.0-10.0) Eosinophils (%) (Auto) 3.1 % (0.0-3.0) H Basophils (%) (Auto) 0.4 % (0.0-2.0) Sodium Level 139 MMOL/L (136-145) Potassium Level 3.6 MMOL/L (3.5-5.1) Chloride Level 101 MMOL/L (98-107) Carbon Dioxide Level 30 MMOL/L (21-32) Anion Gap 9 mmol/L (5-15) Blood Urea Nitrogen 45 mg/dL (7-18) H Creatinine 1.9 MG/DL (0.55-1.30) H Estimat Glomerular Filtration Rate mL/min (>60) Glucose Level 232 MG/DL (74-106) H Calcium Level 9.1 MG/DL (8.5-10.1) Pro-B-Type Natriuretic Peptide 180 pg/mL (0-125) H Microbiology Date/Time Source Procedure Growth Status 10/17/18 12:33 Ascities Fluid Gram Stain - Final Resulted 10/17/18 12:33 Ascities Fluid Body Fluid Culture - Preliminary NO GROWTH Resulted Intake and Output 10/18/18 10/19/18 19:00 07:00 Intake Total 480 ml Output Total 1050 ml 1000 ml Balance -570 ml -1000 ml Intake Oral 480 ml Output Urine Total 1050 ml 1000 ml # Voids 5 Objective PHYSICAL EXAMINATION: GENERAL: The patient is awake and responsive, in no acute distress. HEAD AND NECK: Pupils are equal and reactive to light. Extraocular movements are intact. Neck was supple. No JVD. LUNGS: Good air entry. No wheezes or rales. HEART: S1, S2. Distant heart sounds. No gallops. ABDOMEN: Soft, nondistended, and nontender. Morbidly obese. EXTREMITIES: +1 edema bilateral lower extremities. NEUROLOGIC: Cranial nerves II through XII grossly intact. Moves all four extremities. Gait is intact. RECTAL: Refused and deferred. GENITOURINARY: Refused and deferred. PSYCHIATRIC: Mood and affect is intact. Assessment/Plan Assessment/Plan ASSESSMENT: 1. Acute congestive heart failure exacerbation on chronic with preserved ejection fraction, diastolic dysfunction. 2. Left-sided pleural effusion. 3. Morbid obesity. 4. Hypertension. 5. Dyslipidemia. 6. Diabetes type 2. 7. Dyspnea 8. Hyperglycemia PLAN: 1. Admit the patient to telemetry. 2. Pulmonary consultation with Dr. Juarez and 3. cardiology consultation with Dr. Herman Cruz. 4. The patient is S/P thoracocentesis; await results 5. Code status is Full Code. 2-D echo. DVT prophylaxis is heparin subcutaneous. Expected to be discharged within two to three days. 6. Increase novolog sliding scale to sensitive. Add levemir-increase to BID Layo Angel MD Oct 19, 2018 19:17
--- NOTE | 2018-10-19 19:25 | NUR ---
NURSE NOTES: Got report from Bernie NELSON. Pt in stable condition. Denies any pain. No s/s of distress noted. Pt resting in bed comfortably. Bed in low and locked position, call light within reach, bedside table within reach. Continue to monitor.
--- NOTE | 2018-10-19 19:26 | NUR ---
HAND-OFF: Report given to OMAR Villar.
[2018-10-19] MEDS: Furosemide 40mg tab ORAL SCH (20:40)
[2018-10-19] MEDS: Levemir Flexpen SUBQ SCH (20:59)
[2018-10-19] MEDS: HydrALAZINE 50mg tab ORAL SCH (21:40)
[2018-10-20 04:00] VITALS: BP 144/68
[2018-10-20] MEDS: HydrALAZINE 50mg tab ORAL SCH ×2 (06:12→14:11)
[2018-10-20] MEDS: NovoLOG Insulin Flexpen SUBQ SCH ×2 (06:17→12:11)
--- NOTE | 2018-10-20 07:25 | NUR ---
HAND-OFF: Report given to Sharon NELSON. Endorsed plan of care.
--- NOTE | 2018-10-20 07:30 | NUR ---
NURSE NOTES: Received pt from OMAR Can. Pt in stable condition AAOx4 on RN with no cardiopulmonary distress noted. Pt is using urinal. Skin is intact. Pt denies any pain or SOB at this time. R FA 20g IV is intact and patent. Bed in lowest position. Side rails up x 2. Call light within reach. Will continue to monitor pt.
[2018-10-20 07:31] LABS: BASOPHILS % (AUTO) 0.6 % (0.0-2.0); EOSINOPHILS % (AUTO) 3.1 % (0.0-3.0); HEMATOCRIT 34.4 % (42.0-52.0); HEMOGLOBIN 10.4 G/DL (14.2-18.0); MEAN CORPUSCULAR VOLUME 78 FL (80-99); MONOCYTES % (AUTO) 7.4 % (1.0-10.0); NEUTROPHILS % (AUTO) 74.9 % (45.0-75.0); PLATELET COUNT 231 K/UL (150-450); RED CELL DISTRIBUTION WIDTH 16.4 % (11.6-14.8); WHITE BLOOD COUNT 14.1 K/UL (4.8-10.8)
[2018-10-20 07:54] LABS: ANION GAP 10 mmol/L (5-15); BLOOD UREA NITROGEN 38 mg/dL (7-18); CARBON DIOXIDE 28 MMOL/L (21-32); CHLORIDE 102 MMOL/L (98-107); CREATININE 1.7 MG/DL (0.55-1.30); POTASSIUM 3.7 MMOL/L (3.5-5.1); SODIUM 140 MMOL/L (136-145)
[2018-10-20 08:00] VITALS: BP 147/60
[2018-10-20] MEDS: Heparin 5000 units/ml inj SUBQ SCH (09:34)
[2018-10-20] MEDS: Levemir Flexpen SUBQ SCH (09:35)
[2018-10-20] MEDS: Lisinopril 20mg tab ORAL SCH (09:36)
[2018-10-20] MEDS: Furosemide 40mg tab ORAL SCH (09:36)
[2018-10-20] MEDS: Azithromycin 250mg tab ORAL SCH (09:38)
[2018-10-20] MEDS: Aspirin EC 81mg tab ORAL SCH (09:38)
--- NOTE | 2018-10-20 10:27 | Diagnostic Imaging Report ---
APPROVED REPORT CPT Code: 41582 Present Symptoms Comments: BILATERAL LEGS PAIN. BILATERAL: Imaging reveals a patent deep venous system bilaterally. There is no evidence of thrombus within the femoral, popliteal or tibial segments. The greater saphenous veins are also within normal limits. Doppler indicates normal spontaneous flow within these segments.
[2018-10-20] MEDS ORDERED: APRESOLINE50 MG ORAL (10:38)
[2018-10-20] MEDS ORDERED: FUROSEMIDE40 MG ORAL (10:41)
--- NOTE | 2018-10-20 10:43 | Pulmonology Progress Note ---
Assessment/Plan Problems: (1) Acute exacerbation of CHF (congestive heart failure) (2) Hypertensive emergency (3) Sepsis Assessment & Plan: wbc decreasing, no cultures yet (4) Acute respiratory failure with hypoxia (5) Pulmonary edema (6) Diabetes mellitus (7) Hypertension (8) Diabetic nephropathy Assessment/Plan on lasix PO US of kidney reviewed, no hydronephrosis no apparent source of infection. pt/ot increase levemir f/u cardiology recommendations dc home with new prescription of lasix and Hydralazine 100 tid. Subjective ROS Limited/Unobtainable: No Constitutional: Reports: no symptoms HEENT: Repors: no symptoms Respiratory: Reports: no symptoms Allergies: Coded Allergies: No Known Allergies (Unverified , 10/16/18) Objective Last 24 Hour Vital Signs Date Time Temp Pulse Resp B/P (MAP) Pulse Ox O2 Delivery O2 Flow Rate FiO2 10/20/18 09:37 65 147/60 10/20/18 09:36 147/60 10/20/18 08:00 62 10/20/18 08:00 98.4 65 19 147/60 (89) 94 10/20/18 06:12 144/70 10/20/18 04:00 98.0 64 20 144/68 (93) 98 10/20/18 04:00 60 10/20/18 00:00 59 10/19/18 23:51 98.9 65 20 148/60 (89) 97 10/19/18 21:48 95 Room Air 21 10/19/18 21:48 63 18 Room Air 21 10/19/18 21:48 Room Air 21 10/19/18 21:40 150/60 10/19/18 21:00 Nasal Cannula 2.0 10/19/18 20:00 59 10/19/18 20:00 98.7 60 20 157/62 (93) 95 10/19/18 16:00 57 10/19/18 16:00 98.5 64 18 154/61 (92) 97 10/19/18 13:26 142/60 10/19/18 12:00 98.7 62 20 142/59 (86) 98 10/19/18 12:00 39 Intake and Output 10/19/18 10/20/18 18:59 06:59 Intake Total 680 ml Output Total 1200 ml 950 ml Balance -520 ml -950 ml Intake Oral 680 ml Output Urine Total 1200 ml 950 ml # Voids 1 General Appearance: WD/WN HEENT: normocephalic, atraumatic Respiratory/Chest: chest wall non-tender, lungs clear Cardiovascular: normal peripheral pulses, normal rate Abdomen: normal bowel sounds, soft, non tender Genitourinary: normal external genitalia Extremities: no clubbing Neurologic/Psychiatric: no motor/sensory deficits Microbiology Date/Time Source Procedure Growth Status 10/17/18 12:33 Ascities Fluid Gram Stain - Final Resulted 10/17/18 12:33 Ascities Fluid Body Fluid Culture - Preliminary NO GROWTH AFTER 24 HOURS Resulted Laboratory Tests 10/20/18 06:02: White Blood Count 14.1H, Red Blood Count 4.40L, Hemoglobin 10.4L, Hematocrit 34.4L, Mean Corpuscular Volume 78L, Mean Corpuscular Hemoglobin 23.7L, Mean Corpuscular Hemoglobin Concent 30.3L, Red Cell Distribution Width 16.4H, Platelet Count 231, Mean Platelet Volume 5.3L, Neutrophils (%) (Auto) 74.9, Lymphocytes (%) (Auto) 14.0L, Monocytes (%) (Auto) 7.4, Eosinophils (%) (Auto) 3.1H, Basophils (%) (Auto) 0.6, Sodium Level 140, Potassium Level 3.7, Chloride Level 102, Carbon Dioxide Level 28, Anion Gap 10, Blood Urea Nitrogen 38H, Creatinine 1.7H, Estimat Glomerular Filtration Rate , Glucose Level 217H, Calcium Level 9.0 Current Medications Medications (Trade) Dose Ordered Sig/Musa Route PRN Reason Start Time Stop Time Status Last Admin Dose Admin Acetaminophen (Tylenol) 650 mg Q4H PRN ORAL T>100.5 10/16/18 10:00 11/15/18 09:59 Albuterol/ Ipratropium (Albuterol/ Ipratropium) 3 ml Q4H PRN HHN Shortness of Breath 10/16/18 10:00 10/21/18 09:59 Amlodipine Besylate (Norvasc) 10 mg DAILY ORAL 10/17/18 09:00 11/16/18 08:59 10/20/18 09:37 Aspirin (Ecotrin) 81 mg DAILY ORAL 10/17/18 09:00 11/16/18 08:59 10/20/18 09:38 Azithromycin (Zithromax) 500 mg DAILY ORAL 10/16/18 14:30 10/23/18 14:29 10/20/18 09:38 Ceftriaxone Sodium 1 gm/ Dextrose 55 ml @ 110 mls/hr Q24H IVPB 10/16/18 16:00 10/23/18 15:59 10/19/18 16:01 Dextrose (Dextrose 50%) 25 ml Q30M PRN IV Hypoglycemia 10/18/18 15:00 11/17/18 14:59 Dextrose (Dextrose 50%) 50 ml Q30M PRN IV Hypoglycemia 10/18/18 15:00 11/17/18 14:59 Furosemide (Lasix) 40 mg EVERY 12 HOURS ORAL 10/19/18 21:00 11/18/18 20:59 10/20/18 09:36 Heparin Sodium (Porcine) (Heparin 5000 units/ml) 5,000 units EVERY 12 HOURS SUBQ 10/16/18 21:00 11/15/18 20:59 10/20/18 09:34 Hydralazine HCl (Apresoline) 100 mg EVERY 8 HOURS ORAL 10/19/18 22:00 11/18/18 21:59 10/20/18 06:12 Insulin Aspart (NovoLOG) BEFORE MEALS AND HS SUBQ 10/18/18 16:30 11/17/18 16:29 10/20/18 06:17 Insulin Detemir (Levemir) 10 units EVERY 12 HOURS SUBQ 10/19/18 21:00 11/17/18 20:59 10/20/18 09:35 Lisinopril (Prinivil) 40 mg DAILY ORAL 10/17/18 09:00 11/16/18 08:59 10/20/18 09:36 Ondansetron HCl (Zofran) 4 mg Q6H PRN IVP Nausea & Vomiting 10/16/18 10:00 11/15/18 09:59 Polyethylene Glycol (Miralax) 17 gm DAILYPRN PRN ORAL Constipation 10/16/18 10:00 11/15/18 09:59 Pravastatin Sodium (Pravachol) 10 mg BEDTIME ORAL 10/16/18 21:00 11/15/18 20:59 10/19/18 20:40 Temazepam (Restoril) 15 mg HSPRN PRN ORAL Insomnia 10/16/18 21:00 10/23/18 20:59 10/17/18 23:43 Janell Juarez MD Oct 20, 2018 10:43
[2018-10-20 12:00] VITALS: BP 137/64
--- NOTE | 2018-10-20 12:19 | Infectious Diseases Prog Note ---
Assessment/Plan Assessment/Plan Probable PNA -10/19 CXR: There is bilateral interstitial edema present, appearing unchanged. The pleural spaces are clear. No focal airspace consolidation -10/16 CXR: Extensive bilateral diffuse airspace opacities are noted. There may be some pleural fluid on the left. The heart is enlarged. Pulmonary edema R pleural effusion -10/16 sp R thoracentesis- cloudy fluid -fluid analysis: transudate - protein 2.9 (serum 7.8), LDH 89 ( serum 168); cx NTD -CXR: Resolved right pleural effusion, post thoracentesis. No radiographically evident complication Improved but persistent interstitial and airspace edema Afebrile Leukocytosis, overall improved -u/a neg CAD DM2 HTN Plan: -Continue Ceftriaxone #5/7 and azithromycin #5/5 for probable PNA -f/u sp cx, legionella ag urine, influenza sc -f/u cx -Monitor CBC/CMP, temperatures -Bcx x2, u/a w/ reflex Will continue to follow along with you. . Subjective Allergies: Coded Allergies: No Known Allergies (Unverified , 10/16/18) Subjective afebrile at RA wbc remains at 14 Objective Vital Signs Last 24 Hour Vital Signs Date Time Temp Pulse Resp B/P (MAP) Pulse Ox O2 Delivery O2 Flow Rate FiO2 10/20/18 09:37 65 147/60 10/20/18 09:36 147/60 10/20/18 09:00 Room Air 10/20/18 08:00 62 10/20/18 08:00 98.4 65 19 147/60 (89) 94 10/20/18 07:05 96 Room Air 21 10/20/18 07:05 Room Air 21 10/20/18 07:05 68 16 Room Air 21 10/20/18 06:12 144/70 10/20/18 04:00 98.0 64 20 144/68 (93) 98 10/20/18 04:00 60 10/20/18 00:00 59 10/19/18 23:51 98.9 65 20 148/60 (89) 97 10/19/18 21:48 95 Room Air 21 10/19/18 21:48 63 18 Room Air 21 10/19/18 21:48 Room Air 21 10/19/18 21:40 150/60 10/19/18 21:00 Nasal Cannula 2.0 3/11/19 20:00 59 10/19/18 20:00 98.7 60 20 157/62 (93) 95 10/19/18 16:00 57 10/19/18 16:00 98.5 64 18 154/61 (92) 97 10/19/18 13:26 142/60 10/19/18 12:00 98.7 62 20 142/59 (86) 98 10/19/18 12:00 39 Height (Feet): 5 Height (Inches): 8.00 Weight (Pounds): 189 Objective General Appearance: no acute distress, obese AA male A/A/O x 4 in NAD HEENT: normocephalic, atraumatic, anicteric, mucous membranes moist Respiratory/Chest: no respiratory distress, no accessory muscle use, decreased breath sounds at bases Cardiovascular: bradycardia - SB on tele Abdomen: normal bowel sounds, soft, non tender , obese Extremities: +1 edema BLE Neurologic/Psychiatric: alert, oriented x 3, responsive Musculoskeletal: normal muscle bulk Microbiology Date/Time Source Procedure Growth Status 10/17/18 12:33 Ascities Fluid Gram Stain - Final Resulted 10/17/18 12:33 Ascities Fluid Body Fluid Culture - Preliminary NO GROWTH AFTER 24 HOURS Resulted Laboratory Tests Test 10/20/18 06:02 White Blood Count 14.1 K/UL (4.8-10.8) H Red Blood Count 4.40 M/UL (4.70-6.10) L Hemoglobin 10.4 G/DL (14.2-18.0) L Hematocrit 34.4 % (42.0-52.0) L Mean Corpuscular Volume 78 FL (80-99) L Mean Corpuscular Hemoglobin 23.7 PG (27.0-31.0) L Mean Corpuscular Hemoglobin Concent 30.3 G/DL (32.0-36.0) L Red Cell Distribution Width 16.4 % (11.6-14.8) H Platelet Count 231 K/UL (150-450) Mean Platelet Volume 5.3 FL (6.5-10.1) L Neutrophils (%) (Auto) 74.9 % (45.0-75.0) Lymphocytes (%) (Auto) 14.0 % (20.0-45.0) L Monocytes (%) (Auto) 7.4 % (1.0-10.0) Eosinophils (%) (Auto) 3.1 % (0.0-3.0) H Basophils (%) (Auto) 0.6 % (0.0-2.0) Sodium Level 140 MMOL/L (136-145) Potassium Level 3.7 MMOL/L (3.5-5.1) Chloride Level 102 MMOL/L (98-107) Carbon Dioxide Level 28 MMOL/L (21-32) Anion Gap 10 mmol/L (5-15) Blood Urea Nitrogen 38 mg/dL (7-18) H Creatinine 1.7 MG/DL (0.55-1.30) H Estimat Glomerular Filtration Rate mL/min (>60) Glucose Level 217 MG/DL (74-106) H Calcium Level 9.0 MG/DL (8.5-10.1) Current Medications Medications (Trade) Dose Ordered Sig/Musa Route PRN Reason Start Time Stop Time Status Last Admin Dose Admin Acetaminophen (Tylenol) 650 mg Q4H PRN ORAL T>100.5 10/16/18 10:00 11/15/18 09:59 Albuterol/ Ipratropium (Albuterol/ Ipratropium) 3 ml Q4H PRN HHN Shortness of Breath 10/16/18 10:00 10/21/18 09:59 Amlodipine Besylate (Norvasc) 10 mg DAILY ORAL 10/17/18 09:00 11/16/18 08:59 10/20/18 09:37 Aspirin (Ecotrin) 81 mg DAILY ORAL 10/17/18 09:00 11/16/18 08:59 10/20/18 09:38 Azithromycin (Zithromax) 500 mg DAILY ORAL 10/16/18 14:30 10/23/18 14:29 10/20/18 09:38 Ceftriaxone Sodium 1 gm/ Dextrose 55 ml @ 110 mls/hr Q24H IVPB 10/16/18 16:00 10/23/18 15:59 10/19/18 16:01 Dextrose (Dextrose 50%) 25 ml Q30M PRN IV Hypoglycemia 10/18/18 15:00 11/17/18 14:59 Dextrose (Dextrose 50%) 50 ml Q30M PRN IV Hypoglycemia 10/18/18 15:00 11/17/18 14:59 Furosemide (Lasix) 40 mg EVERY 12 HOURS ORAL 10/19/18 21:00 11/18/18 20:59 10/20/18 09:36 Heparin Sodium (Porcine) (Heparin 5000 units/ml) 5,000 units EVERY 12 HOURS SUBQ 10/16/18 21:00 11/15/18 20:59 10/20/18 09:34 Hydralazine HCl (Apresoline) 100 mg EVERY 8 HOURS ORAL 10/19/18 22:00 11/18/18 21:59 10/20/18 06:12 Insulin Aspart (NovoLOG) BEFORE MEALS AND HS SUBQ 10/18/18 16:30 11/17/18 16:29 10/20/18 06:17 Insulin Detemir (Levemir) 10 units EVERY 12 HOURS SUBQ 10/19/18 21:00 11/17/18 20:59 10/20/18 09:35 Lisinopril (Prinivil) 40 mg DAILY ORAL 10/17/18 09:00 11/16/18 08:59 10/20/18 09:36 Ondansetron HCl (Zofran) 4 mg Q6H PRN IVP Nausea & Vomiting 10/16/18 10:00 11/15/18 09:59 Polyethylene Glycol (Miralax) 17 gm DAILYPRN PRN ORAL Constipation 10/16/18 10:00 11/15/18 09:59 Pravastatin Sodium (Pravachol) 10 mg BEDTIME ORAL 10/16/18 21:00 11/15/18 20:59 10/19/18 20:40 Temazepam (Restoril) 15 mg HSPRN PRN ORAL Insomnia 10/16/18 21:00 10/23/18 20:59 10/17/18 23:43 Jill Zepeda M.D. Oct 20, 2018 12:19
[2018-10-20] MEDS ORDERED: LEVOFLOXACIN500 MG ORAL (12:32)
[2018-10-20 14:11] VITALS: BP 137/64
--- NOTE | 2018-10-20 15:45 | NUR ---
Pt discharged to home in stable condition with son Jazmin Brown via private vehicle. Pt is ambulatory with steady gait and was escorted to vehicle. No cardiopulmonary distress noted. Pt's IV, playground monitor, and wrist band removed prior to d/c. Tele box collected. Patient belongings checked with pt and sent with pt. Pt instructed to return to ER if SOB or chest pain reoccur. All discharge instructions and prescriptions given to pt with verbalized understanding.
--- NOTE | 2018-10-20 16:31 | NUR ---
P.T NOTE:LATE ENTRY 0857 PATIENT NOT APPROPRIATE FOR SKILLED P.T SERVICE PATIENT IS CURRENTLY AT BASELINE FUNCTION. PATIENT IS INDEPENDENT FOR ALL ADL/FUNCTIONAL MOBILITIES AND GAIT/LOCOMOTION. OR P.T SERVICES . THANK YOU FOR THIS REFERRAL. Addendum: 10/20/18 at 1632 by PEDRO SURESH PT Amended: Links added.
--- NOTE | 2018-10-20 23:16 | Progress Note ---
DATE: 10/20/2018 SUBJECTIVE: The patient denies any chest pain, no shortness of breath. No PND. No orthopnea. No palpitations. No dizziness or lightheadedness on standing. He has been doing relatively well. PHYSICAL EXAMINATION: VITAL SIGNS: Blood pressure is 137/64 with heart rate of 69, temperature 97.5. LUNGS: Clear to auscultation and percussion. CARDIAC: Regular rate and rhythm. No heaves or thrills noted. ABDOMEN: Soft, nontender. Positive bowel sounds. EXTREMITIES: There is no clubbing, cyanosis, or edema. LABORATORY AND DIAGNOSTIC DATA: White count of 14.1, hemoglobin 10.1, and platelet count of 231. Sodium is 140, potassium 3.7, chloride 102, bicarb 28, BUN 38, creatinine 1.7, glucose of 217. Calcium is 9. ASSESSMENT/PLAN: 1. Diastolic heart failure. 2. Pulmonary hypertension. 3. Renal insufficiency. 4. Minimally abnormal cardiac enzymes of questionable significance in light of renal insufficiency. 5. Morbid obesity. 6. Anemia. 7. Diabetes. 8. Hypertension. The patient has been doing much better. Troponin without any peak or janeth to be suggestive of coronary syndrome or [place] based of world health criteria. Blood pressure is controlled and maybe as outpatient he may need to be on additional medications. Hydralazine was increased during this hospitalization. He is on maximum dose of lisinopril and Norvasc. 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 Herman Cruz M.D. DR: Haylie JOB#: [id number] CC:
--- NOTE | 2018-10-22 08:06 | Discharge Summary ---
Discharge Summary Discharge Summary _ DATE OF ADMISSION: 10/16/2018 DATE OF DISCHARGE: 10/20/2018 DISCHARGED BY: Dr. Segura REASON FOR ADMISSION: 78 years old male with past medical history of hypertension, diabetes mellitus type 2, coronary artery disease, morbid obesity, congestive heart failure, presented to the hospital , complaining of shortness of breath ,which was getting progressively worse over the past few days. Patient reported chronic leg edema , which was getting progressively worse as well. Patient was brought to the hospital by paramedics due to shortness of breath and accelerated hypertension. Nitroglycerin spray was provided to the patient by paramedics. Patient was placed on supplemental oxygen. Upon initial evaluation in emergency department blood pressure was 188/83. Patient required 100% nonrebreathing mask. Laboratory workup revealed significant leukocytosis WBC 22.5. Hemoglobin 10 , hematocrit 33. BUN 28 , creatinine 1.6. Glucose 201. Pro BNP 1466. Chest x-ray revealed extensive bilateral airspace disease : pneumonia versus edema. Cardiomegaly. Possible left pleural effusion. Patient was admitted to telemetry floor with shortness of breath, possible congestive heart failure exacerbation, acute respiratory failure, possible pneumonia , hypertensive urgency, renal insufficiency. CONSULTANTS: woodenware assembler Dr. Cruz pulmonary Dr. Juarez ID specialist Dr. Lemon [facility]: Patient admitted to telemetry floor. Patient started on Lasix drip with close monitoring of cardiorenal parameters and volumes. Supplemental oxygen titrated to keep pulse oximetry above 92%. Pulmonary toilet provided. Patient undergone o thoracentesis of right pleural effusion , which yielded 400 mL of cloudy pleural fluid. Follow-up chest x-ray revealed complete resolution of right pleural effusion. No radiographically evident complication. Culture of pleural fluid was negative. Fluid analysis was unremarkable. Cytology of pleural fluid revealed no evidence of malignant cells. Venous duplex bilateral lower extremity revealed no evidence of acute DVT. Gardening Manager and bakeshop cleaner closely followed. Noted elevated troponin level , which was minimally elevated and trending down . The first troponin -0.108 , the last one -0.081. Per woodenware assembler, troponin levels were flat, no peak, no janeth. Troponin pattern was not suggestive of myocardial infarction pattern, based on WHO criteria. Elevated troponin was possibly due to renal insufficiency. Echocardiogram revealed preserved ejection fraction of 60% with mild left ventricular hypertrophy. No evidence of wall motion abnormality. Right ventricular systolic pressure of 55. Aspirin and statin were continued. Blood pressure was managed with calcium channel sheree , hydralazine and SKYLAR inhibitor. Hydralazine dose was increased to keep blood pressure under control Nitroglycerin provided as needed. No AV nodular blockers , given initial bradycardia. Heart rate improved. Patient was able to be weaned from the 100% nonrebreathing mask and oxygen was provided via nasal cannula. Edema was decreasing, shortness of breath. Patient was follow-up with chest x-ray and pro BNP. Pro BNP trended down to 180. Lasix was changed to oral route. Antibiotics provided as per ID recommendation for probable pneumonia. Leukocytosis improved. Urinalysis negative. Patient was on ceftriaxone and azithromycin while in the hospital for probable pneumonia. Sputum culture was not obtained, since cough was dry. Last chest x-ray revealed no focal airspace consolidation and clear pleural spaces. Patient will need to complete 2 more days of antibiotics/Levaquin upon discharge to complete the course. Renal parameters and electrolytes were closely monitored. Electrolytes corrected as needed. Renal ultrasound revealed normal bilateral kidney echogenicity. No evidence of hydronephrosis. Creatinine in the range of 1.6-1.9. Patient likely had chronic renal insufficiency due to possible diabetic nephropathy. Blood sugar was managed with sliding scale of insulin. Hemoglobin A1c 8.3, not at goal yet. Patient will need close monitoring of blood sugar as an outpatient and further optimization of anti-glycemic regimen. Bowel regimen instituted. Supportive care provided. Hemoglobin and hematocrit were closely monitored with goal to keep hemoglobin above 7. Stool for occult blood was negative. CEA was within normal limits. Prior to discharge hemoglobin 10.4 hematocrit 34.4. Patient clinically stabilized and was ready for discharge home. FINAL DIAGNOSES: Acute hypoxemic respiratory failure , requiring initially 100% nonrebreathing mask- resolved Pulmonary edema Acute diastolic CHF exacerbation Probably pneumonia Right pleural effusion status post thoracentesis 400 mL Coronary artery disease Hypertension with hypertensive urgency initially- resolved Elevated troponin, likely due to renal insufficiency Diabetes mellitus Acute and chronic renal disease, probably due to diabetic nephropathy Anemia Moderate pulmonary hypertension Morbid obesity DISCHARGE MEDICATIONS: See Medication Reconciliation list. DISCHARGE INSTRUCTIONS: Patient was discharged home . Follow up with primary care provider in one week. Ayana Salgado NP Oct 22, 2018 08:06
--- NOTE | 2018-10-22 09:33 | Cardiology Report ---
APPROVED REPORT EKG Measurement Heart [id number] Sinus bradycardia with 1st degree AV block Nonspecific T wave abnormality Abnormal ECG
== END 2018-10-20 15:45 | disposition home or self-care (01) | DRG 291 ==
LOC: EDBD 05:07 → EMR 05:24 → 2E 05:47 → EDBEDREQ 07:48
PROC: 0W993ZX Drainage of Right Pleural Cavity, Percutaneous Approach, Diagnostic (ICD-10-PCS; principal; 2018-10-16)
DX: I11.0 Hypertensive heart disease with heart failure (principal); J18.9 Pneumonia, unspecified organism; J96.01 Acute respiratory failure with hypoxia; J90 Pleural effusion, not elsewhere classified; N17.9 Acute kidney failure, unspecified; I50.33 Acute on chronic diastolic (congestive) heart failure; I27.20 Pulmonary hypertension, unspecified; I16.0 Hypertensive urgency; E66.01 Morbid (severe) obesity due to excess calories; E78.5 Hyperlipidemia, unspecified; I25.10 Atherosclerotic heart disease of native coronary artery without angina pectoris; E11.21 Type 2 diabetes mellitus with diabetic nephropathy; D64.9 Anemia, unspecified; E11.65 Type 2 diabetes mellitus with hyperglycemia
CPT/HCPCS: 36415; 71045; 76770; 76942; 80048; 80053; 80069; 81001; 81003; 82164; 82270; 82378; 82550; 82553; 82607; 82746; 82962; 83036; 83540; 83550; 83615; 83735; 83880; 84100; 84133; 84300; 84484; 84550; 85007; 85025; 85044; 85060; 85610; 85651; 85730; 86140; 87070; 87205; 88104; 89050; 93005; 93306; 93970; 94640; 94664; 94760; 96374; 96375; 99285; J1815; S5561